=== PATIENT | male | born 1990 | race Two or more races ===

== ENCOUNTER → 2017-08-24 | Outpatient (REF) | payer BC ==
[2017-08-24 18:50] LABS: ESTIMATED AVERAGE GLUCOSE 117 MG/DL (60-110); HEMOGLOBIN A1c 5.7 %
[2017-08-24 18:57] LABS: TOTAL 25(OH) VITAMIN D 13.2 NG/ML (30.0-100.0)
[2017-08-24 18:59] LABS: ALBUMIN 3.7 GM/DL (3.2-5.2); ALBUMIN/GLOBULIN RATIO 0.95 (1.00-1.93); ALKALINE PHOSPHATASE 78 U/L (45-117); ALT/SGPT 40 U/L (12-78); ANION GAP 8 MEQ/L (8-16); AST/SGOT 29 U/L (7-37); BILIRUBIN,TOTAL 0.5 MG/DL (0.2-1.0); BLOOD UREA NITROGEN 18 MG/DL (7-18); CALCIUM LEVEL 8.8 MG/DL (8.5-10.1); CARBON DIOXIDE LEVEL 28 MEQ/L (21-32); CHLORIDE LEVEL 105 MEQ/L (98-107); CHOLESTEROL LEVEL 202 MG/DL (<200); CHOLESTEROL RISK RATIO 5.611 (<5); CREATININE FOR GFR 1.04 MG/DL (0.70-1.30); GLOMERULAR FILTRATION RATE > 60.0 (>60); GLUCOSE, FASTING 98 MG/DL (70-100); HDL CHOLESTEROL 36 MG/DL (>40); LDL CHOLESTEROL 152.8 MG/DL (<100); NON-HDL-C 166 MG/DL; POTASSIUM SERUM 4.5 MEQ/L (3.5-5.1); SODIUM LEVEL 141 MEQ/L (136-145); TOTAL PROTEIN 7.6 GM/DL (6.4-8.2); TRIGLYCERIDES LEVEL 66 MG/DL (<150)
== END ==
LOC: M LAB REF 16:46
DX: Z13.9 Encounter for screening, unspecified (principal)
CPT/HCPCS: 84443

== ENCOUNTER 2018-01-19 02:13 | Inpatient (IN) | payer MEDICAID, SELFPAY, OTHER ==
[2018-01-19] MEDS: LORazepam 2 MG TAB PO (02:41)
[2018-01-19 02:47] LABS: HEMATOCRIT 40.1 % (42.0-52.0); HEMOGLOBIN 13.5 g/dl (13.5-17.5); MEAN CORPUSCULAR HEMOGLOBIN 30.8 pg (27.0-33.0); MEAN CORPUSCULAR HGB CONC 33.7 g/dl (32.0-36.5); MEAN CORPUSCULAR VOLUME 91.3 fl (80.0-96.0); PLATELET COUNT, AUTOMATED 256 10^3/uL (150-450); RED BLOOD COUNT 4.39 10^6/uL (4.30-6.10); RED CELL DISTRIBUTION WIDTH 12.7 % (11.5-14.5); WHITE BLOOD COUNT 7.6 10^3/uL (4.0-10.0)
[2018-01-19 03:08] LABS: AMPHETAMINES LEVEL URINE NEGATIVE (NEGATIVE); BARBITURATES URINE NEGATIVE (NEGATIVE); BENZODIAZEPINES URINE NEGATIVE (NEGATIVE); CANNABINOIDS URINE NEGATIVE (NEGATIVE); COCAINE METABOLITE URINE NEGATIVE (NEGATIVE); METHADONE URINE NEGATIVE (NEGATIVE); OPIATES URINE NEGATIVE (NEGATIVE); PHENCYCLIDINE URINE NEGATIVE (NEGATIVE)
[2018-01-19 03:31] LABS: ACETAMINOPHEN LEVEL < 2.0 UG/ML (10.0-30.0); ALBUMIN 3.9 GM/DL (3.2-5.2); ALBUMIN/GLOBULIN RATIO 1.05 (1.00-1.93); ALKALINE PHOSPHATASE 100 U/L (45-117); ALT/SGPT 47 U/L (12-78); ANION GAP 7 MEQ/L (8-16); AST/SGOT 40 U/L (7-37); BILIRUBIN,DIRECT 0.2 MG/DL (0.0-0.2); BILIRUBIN,TOTAL 0.4 MG/DL (0.2-1.0); BLOOD UREA NITROGEN 14 MG/DL (7-18); CALCIUM LEVEL 8.9 MG/DL (8.5-10.1); CARBON DIOXIDE LEVEL 27 MEQ/L (21-32); CHLORIDE LEVEL 104 MEQ/L (98-107); CREATININE FOR GFR 1.01 MG/DL (0.70-1.30); ETHYL ALCOHOL (ETHANOL) < 0.003 % (0.000-0.010); GLOMERULAR FILTRATION RATE > 60.0 (>60); GLUCOSE, FASTING 88 MG/DL (70-100); POTASSIUM SERUM 3.6 MEQ/L (3.5-5.1); SALICYLATE LEVEL 3.6 MG/DL (5.0-30.0); SODIUM LEVEL 138 MEQ/L (136-145); TOTAL PROTEIN 7.6 GM/DL (6.4-8.2)
[2018-01-19] MEDS ORDERED: MAALOX 30 ML SUSP *UDC PO (04:00)
[2018-01-19] MEDS ORDERED: MOM 30ML SUSPENSION UDC PO (04:00)
[2018-01-19] MEDS: PALIPERIDONE 3 MG ER TAB (INVEGA) PO (09:00)
[2018-01-19] MEDS: diphenhydrAMINE INJ 50MG/ML VIAL (J1200) IM (18:58)
[2018-01-19] MEDS: HALOPERIDOL 5 MG/ML VIAL (J1630) IM (18:59)
[2018-01-19] MEDS: LORazepam 2 MG/ML VIAL (J2060) IV (19:00)
[2018-01-19] MEDS: LORazepam 2 MG/ML VIAL (J2060) IM (19:21)
[2018-01-20] MEDS: PALIPERIDONE 3 MG ER TAB (INVEGA) PO ×3 (00:57→22:01)
[2018-01-21] MEDS: EUCERIN 120GM CREAM TOP ×3 (00:44→22:45)
[2018-01-21] MEDS: PALIPERIDONE 3 MG ER TAB (INVEGA) PO ×2 (09:00→22:45)
[2018-01-22] MEDS: EUCERIN 120GM CREAM TOP ×2 (10:15→21:33)
[2018-01-22] MEDS: PALIPERIDONE 3 MG ER TAB (INVEGA) PO ×2 (10:15→21:33)
[2018-01-22] MEDS: ACETAMINOPHEN TAB 650MG DOSE (2X325MG) PO (17:01)
[2018-01-22] MEDS: traZODone 50 MG TAB PO (22:13)
[2018-01-23] MEDS: EUCERIN 120GM CREAM TOP ×2 (09:15→21:00)
[2018-01-23] MEDS: PALIPERIDONE 3 MG ER TAB (INVEGA) PO ×2 (09:15→21:04)
[2018-01-23] MEDS: traZODone 50 MG TAB PO (21:04)
[2018-01-24] MEDS: PALIPERIDONE 6 MG ER TAB (INVEGA) PO ×2 (09:54→21:42)
[2018-01-24] MEDS: EUCERIN 120GM CREAM TOP ×2 (09:54→21:00)
[2018-01-24] MEDS: traZODone 50 MG TAB PO (21:42)
[2018-01-25] MEDS: PALIPERIDONE 6 MG ER TAB (INVEGA) PO ×2 (08:39→20:51)
[2018-01-25] MEDS: EUCERIN 120GM CREAM TOP ×2 (08:41→20:50)
[2018-01-25] MEDS: PALIPERIDONE PALMITATE 234 MG/1.5 ML INJ (INVEGA SUSTENNA)(J2426) IM (13:24)
[2018-01-25] MEDS: traZODone 50 MG TAB PO (20:51)
[2018-01-26] MEDS: OLANZapine ORAL DISINTEGRATING TAB 5MG PO (01:15)
[2018-01-26] MEDS: PALIPERIDONE 6 MG ER TAB (INVEGA) PO ×2 (08:36→21:55)
[2018-01-26] MEDS: EUCERIN 120GM CREAM TOP ×2 (08:37→21:00)
[2018-01-27] MEDS: EUCERIN 120GM CREAM TOP ×2 (09:00→21:06)
[2018-01-27] MEDS: PALIPERIDONE 6 MG ER TAB (INVEGA) PO ×2 (09:08→21:03)
[2018-01-27] MEDS: ACETAMINOPHEN TAB 650MG DOSE (2X325MG) PO (18:34)
[2018-01-28] MEDS: EUCERIN 120GM CREAM TOP ×2 (09:00→21:00)
[2018-01-28] MEDS: PALIPERIDONE 6 MG ER TAB (INVEGA) PO (09:18)
[2018-01-28] MEDS: PALIPERIDONE PALMITATE 156 MG/1ML INJ(INVEGA SUSTENNA)(J2426) IM (11:19)
[2018-01-28] MEDS: LORazepam 2 MG TAB PO (21:02)
[2018-01-29] MEDS: EUCERIN 120GM CREAM TOP ×2 (09:08→21:00)
[2018-01-29] MEDS: LORazepam 2 MG TAB PO (16:59)
[2018-01-29] MEDS: OLANZapine ORAL DISINTEGRATING TAB 5MG PO (17:54)
[2018-01-30] MEDS: EUCERIN 120GM CREAM TOP ×2 (09:23→21:00)
[2018-01-31] MEDS: LORazepam 2 MG TAB PO (00:13)
[2018-01-31] MEDS: traZODone 50 MG TAB PO (00:13)
[2018-01-31] MEDS: EUCERIN 120GM CREAM TOP (08:39)
[2018-02-27] MEDS ORDERED: PALIPERIDONE PALMITATE 156 MG/1ML INJ(INVEGA SUSTENNA)(J2426) IM (09:00)
== END 2018-01-31 11:45 | disposition home or self-care (01) | DRG 750 ==
LOC: M ED 02:13 → M ED INP 03:50 → M PSY 04:34
DX: F20.0 Paranoid schizophrenia (principal); F17.210 Nicotine dependence, cigarettes, uncomplicated; Z91.018 Allergy to other foods

== ENCOUNTER 2018-03-13 23:02 | Emergency (ER) | payer MEDICAID, OTHER ==
[~2018-03-13 23:02] MED LIST: INVE234I IM; TRAZO50TA PO; VIST50CA PO
[2018-03-14 00:28] LABS: HEMATOCRIT 41.4 % (42.0-52.0); HEMOGLOBIN 13.9 g/dl (13.5-17.5); MEAN CORPUSCULAR HEMOGLOBIN 30.5 pg (27.0-33.0); MEAN CORPUSCULAR HGB CONC 33.6 g/dl (32.0-36.5); MEAN CORPUSCULAR VOLUME 90.8 fl (80.0-96.0); PLATELET COUNT, AUTOMATED 249 10^3/uL (150-450); RED BLOOD COUNT 4.56 10^6/uL (4.30-6.10)
[2018-03-14 00:29] LABS: ACETAMINOPHEN LEVEL < 2.0 UG/ML (10.0-30.0); ALBUMIN 3.8 GM/DL (3.2-5.2); ALT/SGPT 47 U/L (12-78); BILIRUBIN,DIRECT 0.1 MG/DL (0.0-0.2); BILIRUBIN,TOTAL 0.4 MG/DL (0.2-1.0); BLOOD UREA NITROGEN 12 MG/DL (7-18); CALCIUM LEVEL 8.9 MG/DL (8.5-10.1); CARBON DIOXIDE LEVEL 22 MEQ/L (21-32); CHLORIDE LEVEL 105 MEQ/L (98-107); CREATININE FOR GFR 1.04 MG/DL (0.70-1.30); ETHYL ALCOHOL (ETHANOL) 0.026 % (0.000-0.010); GLOMERULAR FILTRATION RATE > 60.0 (>60); GLUCOSE, FASTING 88 MG/DL (70-100); POTASSIUM SERUM 3.6 MEQ/L (3.5-5.1); SALICYLATE LEVEL 3.7 MG/DL (5.0-30.0); SODIUM LEVEL 138 MEQ/L (136-145); TOTAL PROTEIN 7.5 GM/DL (6.4-8.2)
[2018-03-14 01:00] LABS: AMPHETAMINES LEVEL URINE NEGATIVE (NEGATIVE); BARBITURATES URINE NEGATIVE (NEGATIVE); BENZODIAZEPINES URINE NEGATIVE (NEGATIVE); CANNABINOIDS URINE NEGATIVE (NEGATIVE); COCAINE METABOLITE URINE NEGATIVE (NEGATIVE); METHADONE URINE NEGATIVE (NEGATIVE); OPIATES URINE NEGATIVE (NEGATIVE); PHENCYCLIDINE URINE NEGATIVE (NEGATIVE)
[2018-03-14] MEDS ORDERED: LORazepam 0.5 MG TAB PO ONE (01:15)
[2018-03-14] MEDS ORDERED: PALIPERIDONE PALMITATE 156 MG/1ML INJ(INVEGA SUSTENNA)(J2426) IM ONE (02:30)
[2018-03-14 02:51] VITALS: BP 158/94
--- NOTE | 2018-03-14 14:46 | ECGEPIP ---
Stationary ECG Study [facility] - ED Test Date: 2018-03-14 Pat Name: JOSIAH ACEVEDO Department: Room: - Gender: M Director News: : 1990 Requested By: ROSEMARY Mclain Order Number: [id number] Reading MD: Nichole Rashid Measurements Intervals [place] Rate: 80 P: 38 MN: 136 QRS: 53 QRSD: 102 T: 76 QT: 383 QTc: 444 Interpretive Statements SINUS RHYTHM NONSPECIFIC ST & T-WAVE ABNORMALITY NO PRIRO FOR COMPARISON Electronically Signed On 03-14-2018 14:46:43 EST by Nichole Rashid
== END 2018-03-14 02:51 | disposition home or self-care (01) ==
LOC: M ED 23:02
DX: R44.0 Auditory hallucinations (principal); Z91.018 Allergy to other foods; Z79.899 Other long term (current) drug therapy; F17.210 Nicotine dependence, cigarettes, uncomplicated
CPT/HCPCS: 36415; 80048; 80076; 80307; 84443; 85027; 93005; 96372; 99284; G0480; J2426

== ENCOUNTER → 2018-06-23 | Outpatient (REF) | payer OTHER, MEDICAID ==
[2018-06-23 18:47] LABS: ALBUMIN 3.5 GM/DL (3.2-5.2); ALT/SGPT 33 U/L (12-78); BILIRUBIN,TOTAL 0.3 MG/DL (0.2-1.0); BLOOD UREA NITROGEN 12 MG/DL (7-18); CALCIUM LEVEL 8.4 MG/DL (8.5-10.1); CARBON DIOXIDE LEVEL 25 MEQ/L (21-32); CHLORIDE LEVEL 108 MEQ/L (98-107); CHOLESTEROL LEVEL 241 MG/DL (<200); CHOLESTEROL RISK RATIO 6.885 (<5); CREATININE FOR GFR 1.04 MG/DL (0.70-1.30); GLOMERULAR FILTRATION RATE > 60.0 (>60); GLUCOSE, FASTING 105 MG/DL (70-100); HDL CHOLESTEROL 35 MG/DL (>40); LDL CHOLESTEROL 175.4 MG/DL (<100); NON-HDL-C 206 MG/DL; SODIUM LEVEL 139 MEQ/L (136-145); TOTAL PROTEIN 7.1 GM/DL (6.4-8.2); TRIGLYCERIDES LEVEL 153 MG/DL (<150)
[2018-06-23 19:11] LABS: HEMOGLOBIN A1c 5.9 %
== END ==
LOC: M LAB REF 16:35
PROVIDERS: ATTEND Nurse Practitioner Adult Health
DX: Z13.9 Encounter for screening, unspecified (principal)

== ENCOUNTER 2018-06-30 16:32 | Inpatient (IN) | payer MEDICAID, OTHER ==
[~2018-06-30] VITALS: Ht 175.3 cm; Wt 152.5 kg
[2018-06-30] MEDS ORDERED: LORA-674 PO (16:51)
[2018-06-30] MEDS ORDERED: IPRATROPIUM 0.5MG/ALBUTEROL 2.5MG INH SOL UD 3ML (DUONEB)(J7620) NEB ONE (17:00)
[2018-06-30] MEDS ORDERED: methylPREDNISolone INJ 125 MG/2 ML VIAL (J2930) IV ONE (17:00)
[2018-06-30 17:10] LABS: BASO % 0.2 % (0.0-1.0); EOS # 0.1 10^3/uL (0.0-0.50); HEMATOCRIT 43.4 % (42.0-52.0); HEMOGLOBIN 14.7 g/dl (13.5-17.5); LYMPH # 2.6 10^3/uL (1.5-6.5); LYMPH % 31.6 % (24.0-44.0); MEAN CORPUSCULAR HEMOGLOBIN 29.9 pg (27.0-33.0); MEAN CORPUSCULAR HGB CONC 33.9 g/dl (32.0-36.5); MEAN CORPUSCULAR VOLUME 88.2 fl (80.0-96.0); MONO # 0.5 10^3/uL (0.0-0.8); MONO % 6.1 % (0.0-5.0); NEUTROPHILS % 60.7 % (36.0-66.0); PLATELET COUNT, AUTOMATED 199 10^3/uL (150-450); RED BLOOD COUNT 4.92 10^6/uL (4.30-6.10); WHITE BLOOD COUNT 8.2 10^3/uL (4.0-10.0)
[2018-06-30 17:26] LABS: INR 1.07
[2018-06-30 17:27] LABS: PARTIAL THROMBOPLASTIN TIME 30.8 SECONDS (25.4-37.6)
--- NOTE | 2018-06-30 17:29 | REP ---
CT Head without contrast HISTORY: Trauma COMPARISON: None There is no intraparenchymal hemorrhage, acute infarct, mass or midline shift. The ventricular system is normal in appearance. There is no extra cerebral collection. There is no fracture. The visualized sinuses are clear. IMPRESSION: There is no intracranial lesion. Electronically Signed by Terrell Oliver MD 06/30/2018 05:21 P
--- NOTE | 2018-06-30 17:32 | REP ---
CT cervical spine without contrast HISTORY: Trauma COMPARISON: None There is no acute fracture or subluxation. There is no disc bulge or herniation. The spinal canal and neural foramina are patent. The intervertebral discs and vertebral bodies are normal in height. There is loss of the normal lordotic curve. IMPRESSION: There is no acute fracture or subluxation. Electronically Signed by Terrell Oliver MD 06/30/2018 05:24 P
[2018-06-30 17:46] LABS: ALBUMIN 3.4 GM/DL (3.2-5.2); ALT/SGPT 87 U/L (12-78); BILIRUBIN,DIRECT 0.1 MG/DL (0.0-0.2); BILIRUBIN,TOTAL 0.4 MG/DL (0.2-1.0); BLOOD UREA NITROGEN 15 MG/DL (7-18); CALCIUM LEVEL 8.6 MG/DL (8.5-10.1); CARBON DIOXIDE LEVEL 25 MEQ/L (21-32); CHLORIDE LEVEL 108 MEQ/L (98-107); CPK CREATINE PHOSPHOKINASE 293 U/L (39-308); CREATININE FOR GFR 1.24 MG/DL (0.70-1.30); FREE T4 1.06 NG/DL (0.76-1.46); GLOMERULAR FILTRATION RATE > 60.0 (>60); GLUCOSE, FASTING 105 MG/DL (70-100); LIPASE 48 U/L (73-393); MB/CK RELATIVE INDEX 0.99 (< OR =4); NT-PRO BNP 415 PG/ML (<125); POTASSIUM SERUM 3.7 MEQ/L (3.5-5.1); SODIUM LEVEL 139 MEQ/L (136-145); TOTAL PROTEIN 7.8 GM/DL (6.4-8.2); TROPONIN I 0.09 NG/ML (< 0.10)
--- NOTE | 2018-06-30 17:53 | REP ---
HISTORY: Chest pain. COMPARISON: None. There is cardiomegaly. The lungs are clear and the pleural angles are sharp. The osseous structures are within normal limits. IMPRESSION: Cardiomegaly of uncertain etiology. Electronically Signed by Froy Mcgarry DO 06/30/2018 06:58 P
[2018-06-30] MEDS ORDERED: ISOVUE-370 76% 100ML VIAL (Q9967) As Ordered ONE (17:59)
[2018-06-30] MEDS ORDERED: HEPARIN SOD (PORCINE) 5000 UNITS/ML VIAL IV ONE (18:45)
[2018-06-30] MEDS ORDERED: HEPARIN DRIP 25,000 UNITS in APPROPRIATE DILUENT 1 EA IV SCH (18:45)
--- NOTE | 2018-06-30 19:01 | REPVR ---
EXAM: CT Angiography Chest With Contrast EXAM DATE/TIME: 06/30/2018 6:17 PM CLINICAL HISTORY: 28 years old, male; Signs and symptoms; Shortness of breath; Additional info: Chest pain, SOB TECHNIQUE: Imaging protocol: Axial computed tomographic angiography images of the chest with intravenous contrast using CT angiography protocol. Coronal and sagittal reformatted images were created and reviewed. 3D rendering: MIP reconstructed images were created and reviewed. Radiation optimization: All CT scans at this facility use at least one of these dose optimization techniques: automated exposure control; mA and/or kV adjustment per patient size (includes targeted exams where dose is matched to clinical indication); or iterative reconstruction. Contrast material: ISOVUE 370; Contrast volume: 75 ml; Contrast route: IV; COMPARISON: CR Chest, 2 view PA, Lat 06/30/2018 5:13 PM FINDINGS: Pulmonary arteries: There i large pulmonary embolus in the descending left pulmonary artery and extending into the infrahilar pulmonary arterial branches. There is a very large saddle embolus in the right main pulmonary artery. There is a linear collection of thrombus crossing the midline to the left. There is a complete filling defect of all of the right inferior pulmonary artery and branches to the right lower lobe. There is a prominent pulmonary embolus in the pulmonary artery to the right upper lobe as well. Aorta: There is opacification of the aortic arch. Lungs: There is a 2 cm area of consolidated lung at the right posterior gutter region which may be atelectasis or a combination of atelectasis and infiltrate. It would be important to have followup studies to see if this resolves and to exclude any possibility of underlying nodule. Pleural space: Normal. No pneumothorax. No pleural effusion. Heart: There is mild cardiomegaly. Mediastinum: Residual thymus in the anterior mediastinum Lymph nodes: Unremarkable. No enlarged lymph nodes. Bones/joints: There is no evidence of bony abnormality. Soft tissues: Unremarkable. IMPRESSION: 1. This study is highly positive for pulmonary embolus with a large saddle embolus in the right main pulmonary artery. 2. The right pulmonary embolus fills the right inferior pulmonary artery and branches to the right lower lobe. There is also embolus to the right upper lobe pulmonary artery. 3. Large pulmonary embolus within the left inferior pulmonary artery to the infrahilar branches.Findings were discussed with LARY LOCKE at 06/30/2018 6:40 PM EDT. Electronically signed by: Hugh Padilla On 06/30/2018 19:01:34 PM
[2018-06-30] MEDS ORDERED: INVE234I IM (19:13)
[2018-06-30] MEDS ORDERED: HYDR50TA70 PO (19:13)
[2018-06-30] MEDS ORDERED: TRAZO50TA PO (19:13)
[2018-06-30] MEDS ORDERED: ENOXAPARIN 150 MG/ML SYR (J1650) SC ONE (19:30)
[2018-06-30] MEDS ORDERED: ACETAMINOPHEN TAB 650MG DOSE (2X325MG) PO PRN (20:45)
[2018-06-30] MEDS ORDERED: MAALOX 30 ML SUSP *UDC PO PRN (20:45)
[2018-06-30] MEDS ORDERED: MOM 30ML SUSPENSION UDC PO PRN (20:45)
[2018-06-30 21:00] VITALS: BP 140/88
[2018-06-30 22:00] VITALS: BP 137/90
--- NOTE | 2018-06-30 22:12 | HPEPDOC ---
General Date of Admission June 30, 2018 at 19:44 Chief Complaint The patient is a 28-year-old male admitted with a reason for visit of Pulmonary Embolism. Source: Patient Exam Limitations: No limitations History of Present Illness Mr. Marrero is a 28 years old man with no prior medical hx except for Bipolar disorder, for which he doesn't take any medications. Pt presented to ER today after two episodes of syncope, associated with SOB and chest pain. Pt is not sure about exactly when and how his respiratory symptoms started, but thinks onset may be around early May. At the end of April, he travelled to [place] by [employer], which was about 7 hours-long trip. Pt has no personal or family hx of blood clot or bleeding disorder. In the ER, pt was hypoxic, and required 4L of O2 by NC to maintain O2 sat 92- 95%. He had mild tachycardia, HR in low 100. BP stable. Pro-BNP 415. Troponin normal. CTA showed saddle PE on right main PA. REPORT: 1. This study is highly positive for pulmonary embolus with a large saddle embolus in the right main pulmonary artery. 2. The right pulmonary embolus fills the right inferior pulmonary artery and branches to the right lower lobe. There is also embolus to the right upper lobe pulmonary artery. 3. Large pulmonary embolus within the left inferior pulmonary artery to the infrahilar branches Home Medications Scheduled Loratadine (Loratadine) 10 Mg Tablet, 10 MG PO QHS, (Reported) Paliperidone Palmitate (Invega Sustenna) 234 Mg/1.5 Ml Syringe, 234 MG IM QMONTH, (Reported) Scheduled PRN Hydroxyzine HCl (Hydroxyzine HCl) 50 Mg Tablet, 50 MG PO BID PRN for ANXIETY, (Reported) Trazodone HCl (Trazodone HCl) 50 Mg Tablet, 50 MG PO QHS PRN for INSOMNIA, (Reported) Allergies Coded Allergies: benzocaine (Verified Adverse Reaction, Mild, nausea and vomiting, 06/30/18) mckenzie flavor (Verified Adverse Reaction, Mild, nausea, 06/30/18) Past Medical History Medical History Bipolar disorder Surgical History None Family History Significant Family History: No pertinent family hx Social History * Smoker: current smoker Alcohol: Denies Drugs: denies Psychosocial History: Bipolar A-FIB/CHADSVASC A-FIB History Current/History of A-Fib/PAF?: No Review of Systems Constitutional: Denies: Chills, Fever, Malaise, Night Sweats, Weakness, Fatig ue, Weight Loss, Lethargy, Other Eyes: Denies: Pain, Vision change, Conjunctivae inflammation, Eyelid inflammation, Redness, Other ENT: Denies: Head Aches, Ear Pain, Dysphagia, Sinus Congestion, Post Nasal Drip, Sore Throat, Epistaxis, Other Symptoms Skin: Denies: Rash, Lesions, Jaundice, Bruising, Itching, Dry, Breakdown, Nail Changes, Other Pulmonary: Reports: Dyspnea, Pleuritic Chest Pain Cardiovascular: Reports: Chest Pain; Denies: Edema Gastrointestinal: Denies: Nausea, Vomiting, Abdominal Pain, Diarrhea, Constipation, Melena, Hematochezia, Other Symptoms Genitourinary: Denies: Dysuria, Frequency, Incontinence, Hematuria, Retention, Other Symptoms Hematologic: Denies: Bruising, Bleeding Excessively, Petecchia, Purpura, Enlarged Lymph Nodes, Other Hematologic Endocrine: Denies: Polydipsia, Polyphagia, Polyuria, Heat Intolerance, Cold Intolerance, Other Endocrine Sx Musculoskeletal: Denies: Neck Pain, Back Pain, Shoulder Pain, Arm Pain, Hand Pain, Leg Pain, Foot Pain, Joint Pain, Muscle Pain, Spasms, Other Symptoms Neurological: Denies: Weakness, Numbness, Incoordination, Change in speech, Confusion, Seizures, Other Symptoms Psych: Denies: Mood Normal, Anxiety, Depression, Memory Issues, Thoughts of Self Harm, Anger, Thoughts of Harming Other, Other Psych Physical Examination General Exam: Positive: Alert, Cooperative, No Acute Distress Eye Exam: Positive: PERRLA ENT Exam: Positive: Atraumatic Neck Exam: Positive: Supple; Negative: JVD Chest Exam: Positive: Clear to auscultation, Normal air movement Heart Exam: Positive: Rate Normal, Regular Rhythm Telemetry: Positive: No significant arrhythmia Abdomen Exam: Positive: Normal bowel sounds Extremity Exam: Positive: Normal pulses; Negative: Edema, Tenderness, Swelling Skin Exam: Negative: Rash, Breakdown, Lesion Neuro Exam: Positive: Normal Speech, Strength at 5/5 X4 ext Psych Exam: Positive: Mental status NL, Mood NL Vital Signs Vital Signs Date Time Temp Pulse Resp B/P (MAP) Pulse Ox O2 Delivery O2 Flow Rate FiO2 06/30/18 21:06 105 20 93 Nasal Cannula 4.0 06/30/18 21:00 140/88 (105) 06/30/18 21:00 97.3 Laboratory Data Labs 24H Laboratory Tests 2 06/30/18 16:57: Immature Granulocyte % (Auto) 0.4, White Blood Count 8.2, Red Blood Count 4.92, Hemoglobin 14.7, Hematocrit 43.4, Mean Corpuscular Volume 88.2, Mean Corpuscular Hemoglobin 29.9, Mean Corpuscular Hemoglobin Concent 33.9, Red Cell Distribution Width 12.8, Platelet Count 199, Neutrophils (%) (Auto) 60.7, Lymphocytes (%) (Auto) 31.6, Monocytes (%) (Auto) 6.1H, Eosinophils (%) (Auto) 1.0, Basophils (%) (Auto) 0.2, Neutrophils # (Auto) 5.0, Lymphocytes # (Auto) 2.6, Monocytes # (Auto) 0.5, Eosinophils # (Auto) 0.1, Basophils # (Auto) 0.0, Nucleated Red Blood Cells % (auto) 0.0, Prothrombin Time 14.0, Prothromb Time International Ratio 1.07, Activated Partial Thromboplast Time 30.8, Anion Gap 6L, Glomerular Filtration Rate > 60.0, Calcium Level 8.6, Aspartate Amino Transf (AST/SGOT) 71H, Alanine Aminotransferase (ALT/SGPT) 87H, Alkaline Phosphatase 105, Total Bilirubin 0.4, Direct Bilirubin 0.1, Total Creatine Kinase 293, Creatine Kinase MB 3.0, Creatine Kinase MB Relative Index 0.99, Troponin I 0.09, SK-Ctt-H-Type Natriuretic Peptide 415H, Total Protein 7.8, Albumin 3.4, Albumin/Globulin Ratio 0.77L, Lipase 48L, Thyroid Stimulating Hormone (TSH) 1.570, Free Thyroxine 1.06 CBC/BMP Laboratory Tests 06/30/18 16:57 Red Blood Count 4.92, Mean Corpuscular Volume 88.2, Mean Corpuscular Hemoglobin 29.9, Mean Corpuscular Hemoglobin Concent 33.9, Red Cell Distribution Width 12.8, Neutrophils (%) (Auto) 60.7, Lymphocytes (%) (Auto) 31.6, Monocytes (%) (A uto) 6.1 H, Eosinophils (%) (Auto) 1.0, Basophils (%) (Auto) 0.2, Neutrophils # (Auto) 5.0, Lymphocytes # (Auto) 2.6, Monocytes # (Auto) 0.5, Eosinophils # (Auto) 0.1, Basophils # (Auto) 0.0 Assessment/Plan 28 years old man with recent travel hx presenting with saddle PE and hypoxia. Hemodynamically stable. Saddle PE with Acute Hypoxic Respiratory Failure, without Hypotension or Heart Failure - Discussed with Staff Assistant Dr. Valverde; no indication for thrombolysis at this time - Admit to ICU for close hemodynamic monitoring - Initiate thrombolytic tx if hemodynamic instability or significant worsening clinical status - Lovenox therapeutic dose - Bleeding precaution - O2 by NC as needed - Echo and LE US tomorrow AM - Chek Factor V Leiden Plan / VTE VTE Prophylaxis Ordered?: No VTE Exclusion Mechanical Proph: Other (Pt on therapeutic Lovenox) VTE Exclusion Pharmacological: Other (Pt on therapeutic Lovenox) Plan Anticipated Discharge: Home SARAH FAM MD June 30, 2018 22:12
[2018-06-30] MEDS: DOCUSATE SODIUM 100 MG CAP PO SCH (22:19)
--- NOTE | 2018-06-30 22:25 | ECGEPIP ---
Stationary ECG Study [facility] - ED Test Date: 2018-06-30 Pat Name: JEFF ACEVEDO Department: Room: - Gender: M Extrusion Process Operator: TC : 1990 Requested By: LARY Hernandez Order Number: [id number] Reading MD: Nichole Rashid Measurements Intervals [place] Rate: 108 P: 61 WV: 166 QRS: 59 QRSD: 103 T: -42 QT: 338 QTc: 454 Interpretive Statements SINUS TACHYCARDIA ST DEVIATION AND MODERATE T-WAVE ABNORMALITY, CONSIDER ISCHEMIA, COMPARED 03/14/18 BASELINE ARTIFACT LIMITS INTERPRETATION Electronically Signed On 06-30-2018 22:25:27 EDT by Nichole Rashid
[2018-06-30] MEDS ORDERED: traZODone 50 MG TAB PO PRN (22:45)
[2018-06-30 23:00] VITALS: BP 145/87
[2018-06-30] MEDS ORDERED: INFLUENZA QUADRIVALENT PF VACCINE 0.5ML SYRINGE (90686) IM PRN (23:15)
[2018-07-01] VITALS (16 sets, daily range): BP systolic 99–147; BP diastolic 62–107; PULSE 98
[2018-07-01] MEDS ORDERED: PERCOCET 5MG/325MG TAB PO PRN (02:00)
[2018-07-01] MEDS ORDERED: NS 1,000 ML IV SCH (02:00)
[2018-07-01 03:55] LABS: HEMATOCRIT 44.6 % (42.0-52.0); HEMOGLOBIN 15.3 g/dl (13.5-17.5); MEAN CORPUSCULAR HGB CONC 34.3 g/dl (32.0-36.5); MEAN CORPUSCULAR VOLUME 87.5 fl (80.0-96.0); PLATELET COUNT, AUTOMATED 219 10^3/uL (150-450); WHITE BLOOD COUNT 9.4 10^3/uL (4.0-10.0)
[2018-07-01 04:20] LABS: BLOOD UREA NITROGEN 12 MG/DL (7-18); CALCIUM LEVEL 8.9 MG/DL (8.5-10.1); CARBON DIOXIDE LEVEL 21 MEQ/L (21-32); CHLORIDE LEVEL 107 MEQ/L (98-107); CREATININE FOR GFR 1.12 MG/DL (0.70-1.30); GLOMERULAR FILTRATION RATE > 60.0 (>60); GLUCOSE, FASTING 126 MG/DL (70-100); POTASSIUM SERUM 4.5 MEQ/L (3.5-5.1); SODIUM LEVEL 136 MEQ/L (136-145); TROPONIN I 0.44 NG/ML (< 0.10)
[2018-07-01] MEDS ORDERED: ALTEPLASE 2 MG/2 ML VIAL (J2997 PER 1MG) As Ordered ONE (08:17)
[2018-07-01] MEDS ORDERED: BUPIVACAINE HCL 0.5% 10 ML VIAL As Ordered ONE (08:25)
[2018-07-01] MEDS ORDERED: HEPARIN 25,000 UNITS/250 ML D5W BAG (100 UNITS/ML) As Ordered ONE (08:26)
[2018-07-01] MEDS ORDERED: HEPARIN 1,000 UNITS/ML 10ML VIAL (FOR RADIOLOGY& DIALYSIS ONLY) As Ordered ONE (08:26)
[2018-07-01] MEDS ORDERED: LIDOCAINE 2% MDV 20 ML VIAL As Ordered ONE (08:26)
[2018-07-01] MEDS ORDERED: ALTEPLASE RECOMBINANT 10 MG in APPROPRIATE DILUENT 1 EA IV ONE (08:30)
[2018-07-01] MEDS ORDERED: ISOVUE-300 61% 100ML VIAL (Q9967) As Ordered ONE (08:30)
[2018-07-01] MEDS ORDERED: ENOXAPARIN 150 MG/ML SYR (J1650) SC SCH (09:00)
--- NOTE | 2018-07-01 09:12 | CR.PDOC ---
General Date of Consultation: July 01, 2018 Consultation CONSULTATION REPORT FOR: Dr Hermosillo REASON FOR CONSULTATION: PE Vascular surgery Dr. Barr HPI: 28 year old M presented to ER 06/30/18 after two episodes of syncope, associated with SOB and chest pain. Apparently patient recently traveled from [place] to the [facility] by [employer], which was about 7 hours-long trip. Pt has no personal or family hx of blood clot or bleeding disorder. In the ER, pt was hypoxic, and required 4L of O2 by NC to maintain O2 sat 92- 95%. He had mild tachycardia, HR in low 100. BP stable. Pro-BNP 415. Troponin noted to be 0.58 with recheck 0.44. CTA showed saddle PE on right main PA. Currently the patient states he is still feeling short of breath, palpitations yesterday. He reports no episodes of dizziness or lightheadedness currently. The patient was noted to have blood pressure is 99-109 systolic despite IV fluids at 100 cc per hour. Vascular surgery was consulted for any further recommendations, possibly consider thrombolysis. Denies chest pain currently. Denies any prior history of bleeding, hematuria, GI bleeding, epistaxis. Denies prior history of head trauma,stroke. The patient states he has never been on anticoagulants. Platelet count is noted to be 219. Denies any fevers, chills, weakness, fatigue, Headache, Chest Pain, Shortness of breath, cough, palpitations, abdominal pain, N/V/D or changes in bowel or bladder habits. PMHx: Bipolar disorder M Obesity. BMI 47.2. PSHX: Denies SOCHX: Resides in: [facility] Marital Status: Single Tobacco use: Smoker ETOH: Denies Illicit Drugs: Denies FAMHX: Unremarkable, Patient denies any family history of clotting disorder, PE, DVT. ROS: As noted in HPI, otherwise 11pt ROS of systems reviewed and unremarkable. PE: GEN: 28 yo M, appears stated age. Currently comfortable resting in bed. Alert and oriented x 3. HEENT: Normocephalic, atraumatic. Sclera are nonicteric. Conjunctiva without injection. Nose midline. No facial asymmetry. Moist mucous membranes. Dentition fair. CHEST: Regular rate and rhythm, +S1, +S2 LUNGS: Clear to auscultation bilaterally. Few wheezes left base, no rales, or rhonchi appreciated. Breathing is currently comfortable. No accessory muscle use. ABD: Round, soft, non-tender, non-distended. +Bowel sounds throughout. No rebound or guarding. No costovertebral angle tenderness. EXT: Pulses 2+ bilaterally dorsalis pedis and radial. No lower extremity edema appreciated. SKIN: [place], dry, warm. Capillary refill <2sec. No rashes. NEURO: Alert and oriented x 3. Cranial nerves III-XII are intact. No focal deficits appreciated. CTA chest 1. This study is highly positive for pulmonary embolus with a large saddle embolus in the right main pulmonary artery. 2. The right pulmonary embolus fills the right inferior pulmonary artery and branches to the right lower lobe. There is also embolus to the right upper lobe pulmonary artery. 3. Large pulmonary embolus within the left inferior pulmonary artery to the infrahilar branches.Findings were discussed with LARY LOCKE at 06/30/2018 6:40 PM EDT. Electronically signed by: Hugh Padilla On 06/30/2018 19:01:34 PM A&P: 28 year old M presented to ER 06/30/18 after two episodes of syncope, associated with SOB and chest pain. Apparently patient recently traveled from [place] to the [facility] by [employer], which was about 7 hours-long trip. Pt has no personal or family hx of blood clot or bleeding disorder. In the ER, pt was hypoxic, and required 4L of O2 by NC to maintain O2 sat 92- 95%. He had mild tachycardia, HR in low 100. BP stable. Pro-BNP 415. Troponin noted to be 0.58 with recheck 0.44. CTA showed saddle PE on right main PA. Currently the patient states he is still feeling short of breath, palpitations yesterday. He reports no episodes of dizziness or lightheadedness currently. The patient was noted to have blood pressure is 99-109 systolic despite IV fluids at 100 cc per hour. Vascular surgery was consulted for any further recommendations, possibly consider thrombolysis. 1. Pulmonary embolism. Possibly provoked by recent bus trip and morbid obesity. The pt states he is still feeling SOB at rest. Vital signs this morning noted, blood pressure 109/66, heart rate 91, respiratory rate 20, oxygen saturation 93% 4 L nasal cannula. TTE pending. Troponin 0.44. Lovenox 140 mg subcutaneous every 12, this is placed on hold currently. The patient is reviewed and discussed with Dr. Barr, plan is for IR for possible pulmonary thrombolysis. This is reviewed with the patient who agrees to proceed. Plan is related to the attending physician, Dr Hermosillo. 2. Bipolar disorder. Management as per primary team. 3. morbid obesity. Complicates care. Thank you for your consultation. We will continue to follow along with you. Vital Signs/I&O Vital Signs Date Time Temp Pulse Resp B/P (MAP) Pulse Ox O2 Delivery O2 Flow Rate FiO2 07/01/18 08:00 4.0 07/01/18 08:00 91 93 07/01/18 08:00 20 07/01/18 07:00 109/66 (80) 07/01/18 04:00 98.8 06/30/18 21:06 Nasal Cannula I&O- Last 24 Hours up to 6 AM 07/01/18 06:00 Intake Total 1505 ml Output Total 2150 ml Balance -645 ml Laboratory Data Labs 24H Laboratory Tests 2 06/30/18 16:57: Immature Granulocyte % (Auto) 0.4, White Blood Count 8.2, Red Blood Count 4.92, Hemoglobin 14.7, Hematocrit 43.4, Mean Corpuscular Volume 88.2, Mean Corpuscular Hemoglobin 29.9, Mean Corpuscular Hemoglobin Concent 33.9, Red Cell Distribution Width 12.8, Platelet Count 199, Neutrophils (%) (Auto) 60.7, Lymphocytes (%) (Auto) 31.6, Monocytes (%) (Auto) 6.1H, Eosinophils (%) (Auto) 1.0, Basophils (%) (Auto) 0.2, Neutrophils # (Auto) 5.0, Lymphocytes # (Auto) 2.6, Monocytes # (Auto) 0.5, Eosinophils # (Auto) 0.1, Basophils # (Auto) 0.0, Nucleated Red Blood Cells % (auto) 0.0, Prothrombin Time 14.0, Prothromb Time International Ratio 1.07, Activated Partial Thromboplast Time 30.8, Anion Gap 6L, Glomerular Filtration Rate > 60.0, Calcium Level 8.6, Aspartate Amino Transf (AST/SGOT) 71H, Alanine Aminotransferase (ALT/SGPT) 87H, Alkaline Phosphatase 105, Total Bilirubin 0.4, Direct Bilirubin 0.1, Total Creatine Kinase 293, Creatine Kinase MB 3.0, Creatine Kinase MB Relative Index 0.99, Troponin I 0.09, DA-Fli-Z-Type Natriuretic Peptide 415H, Total Protein 7.8, Albumin 3.4, Albumin/Globulin Ratio 0.77L, Lipase 48L, Thyroid Stimulating Hormone (TSH) 1.570, Free Thyroxine 1.06 06/30/18 22:05: Troponin I 0.58#H 07/01/18 03:45: Nucleated Red Blood Cells % (auto) 0.0, Anion Gap 8, Glomerular Filtration Rate > 60.0, Calcium Level 8.9, Troponin I 0.44#H, Blood Urea Nitrogen 12, Creatinine 1.12, Sodium Level 136, Potassium Level 4.5#, Chloride Level 107, Carbon Dioxide Level 21 CBC/BMP Laboratory Tests 06/30/18 16:57 Red Blood Count 4.92, Mean Corpuscular Volume 88.2, Mean Corpuscular Hemoglobin 29.9, Mean Corpuscular Hemoglobin Concent 33.9, Red Cell Distribution Width 12.8, Neutrophils (%) (Auto) 60.7, Lymphocytes (%) (Auto) 31.6, Monocytes (%) (Auto) 6.1 H, Eosinophils (%) (Auto) 1.0, Basophils (%) (Auto) 0.2, Neutrophils # (Auto) 5.0, Lymphocytes # (Auto) 2.6, Monocytes # (Auto) 0.5, Eosinophils # (Auto) 0.1, Basophils # (Auto) 0.0 07/01/18 03:45 Red Blood Count 5.10, Mean Corpuscular Volume 87.5, Mean Corpuscular Hemoglobin 30.0, Mean Corpuscular Hemoglobin Concent 34.3, Red Cell Distribution Width 12.9, Calcium Level 8.9 Allergies Coded Allergies: benzocaine (Verified Adverse Reaction, Mild, nausea and vomiting, 06/30/18) mckenzie flavor (Verified Adverse Reaction, Mild, nausea, 06/30/18) Home Medications Scheduled Loratadine (Loratadine) 10 Mg Tablet, 10 MG PO QHS, (Reported) Paliperidone Palmitate (Invega Sustenna) 234 Mg/1.5 Ml Syringe, 234 MG IM QMONTH, (Reported) Scheduled PRN Hydroxyzine HCl (Hydroxyzine HCl) 50 Mg Tablet, 50 MG PO BID PRN for ANXIETY, (Reported) Trazodone HCl (Trazodone HCl) 50 Mg Tablet, 50 MG PO QHS PRN for INSOMNIA, (Reported) Annie Robert July 01, 2018 09:12
--- NOTE | 2018-07-01 11:51 | IPNPDOC ---
Date Seen The patient was seen on 07/01/18. Progress Note SUBJECTIVE: Patient was seen and examined this morning. He currently states that he still has shortness of breath. He states that he does not feel as if he can walk without passing out. He does admit to some left and right sided chest pain. He denies any cough, fever, chills, nausea, or vomiting. He denies any dizziness or lightheadedness OBJECTIVE PHYSICAL EXAMINATION: VITAL SIGNS: Please see below. GENERAL: Patient is awake alert and oriented. He is not in acute distress. He appears comfortable HEENT: Atraumatic normorcephalic. Eyes are nonicteric. Trachea is midline. Nasal cannula is in place. Mucous membranes are pink and moist CARDIOVASCULAR: Normal S1, S2. Slightly distant heart sounds. Tachycardic. Regular rhythm. No clicks, rubs, or murmurs auscultated RESPIRATORY: Clear vesicular lung sounds bilaterally. Good respiratory effort. No wheezes, rhonci, or rales. Currently on 4L nasal cannula ABDOMINAL: Obese, soft, nontender to palpation of all 4 quadrants. No rebound tenderness or guarding. Positive bowel sounds EXTREMITIES: No edema, swelling, or erythem in the bilateral lower extremities. Pulses are full and equal in the upper and lower extremities bilaterally NEUROLOGICAL: No focal neurological deficit noted PSYCHOLOGICAL: Mood appears normal. Flat affect LABORATORY DATA, IMAGING STUDIES, MICROBIOLOGY: Please see below. ASSESSMENT AND PLAN: Patient is a 28 year old male with a history of bipolar disorder who presented to the [facility] ER with a complaint of two episodes of syncope associated with shortness of breath and chest pain. On admission the patient sta sylvia that he believes his symptoms were going on since the beginning of May. He stated that in the end of April he had travelled from [place] by [employer] bus to [place] which is approximately 7 hours. Patient denied any family history of blood clots or bleeding disorders. Patient stated that he had two episodes of syncope. The patient stated he was walking and developed shortness of breath and fell over. He was able to recover and walked again resulting in a second episode of syncope. PROBLEMS: 1. Saddle Pulmonary Embolism -Patient had imaging in the ER demonstrating a large saddle embolus in the right main pulmonary artery. The right pulmonary embolus fills the right inferior pulmonary artery and branches to the right lower lobe. There is also embolus to the right upper lobe pulmonary artery. Additionally, large pulmonary embolus within the left inferior pulmonary artery to the infrahilar branches -Patient at time of presentation was hemodynamically stable and was not given systemic thrombolytic therapy. The case was discussed with the Pulmonary/ICU production utility worker physician -The patient has been receiving IV fluids and appears to have blood pressures that are trending down. The patient also has elevated troponin. He continues to require supplemental oxygen. Additionally, the patient has a history of two episodes of likely exertional syncope. It is felt that the patient would benefit from thrombolytic therapy. The case was discussed with Vascular Surgery who agreed with catheter directed thrombolysis -Patient will have PICC line insertion -Altepase 2. Bipolar Depression -Trazodone -Patient receives Invega injections as an outpatient 3. Nicotine Dependence -Nicotine Patch 14mg A-FIB/CHADSVASC A-FIB History Current/History of A-Fib/PAF?: No VS, I&O, 24H, Fishbone Vital Signs/I&O Vital Signs Date Time Temp Pulse Resp B/P (MAP) Pulse Ox O2 Delivery O2 Flow Rate FiO2 07/01/18 10:15 75 94 07/01/18 10:00 20 134/92 (106) 4.0 07/01/18 04:00 98.8 06/30/18 21:06 Nasal Cannula I&O- Last 24 Hours up to 6 AM 07/01/18 06:00 Intake Total 1505 ml Output Total 2150 ml Balance -645 ml Laboratory Data 24H LABS Laboratory Tests 2 06/30/18 16:57: Immature Granulocyte % (Auto) 0.4, White Blood Count 8.2, Red Blood Count 4.92, Hemoglobin 14.7, Hematocrit 43.4, Mean Corpuscular Volume 88.2, Mean Corpuscular Hemoglobin 29.9, Mean Corpuscular Hemoglobin Concent 33.9, Red Cell Distribution Width 12.8, Platelet Count 199, Neutrophils (%) (Auto) 60.7, Lymphocytes (%) (Auto) 31.6, Monocytes (%) (Auto) 6.1H, Eosinophils (%) (Auto) 1.0, Basophils (%) (Auto) 0.2, Neutrophils # (Auto) 5.0, Lymphocytes # (Auto) 2.6, Monocytes # (Auto) 0.5, Eosinophils # (Auto) 0.1, Basophils # (Auto) 0.0, Nucleated Red Blood Cells % (auto) 0.0, Prothrombin Time 14.0, Prothromb Time International Ratio 1.07, Activated Partial Thromboplast Time 30.8, Anion Gap 6L, Glomerular Filtration Rate > 60.0, Calcium Level 8.6, Aspartate Amino Transf (AST/SGOT) 71H, Alanine Aminotransferase (ALT/SGPT) 87H, Alkaline Phosphatase 105, Total Bilirubin 0.4, Direct Bilirubin 0.1, Total Creatine Kinase 293, Creatine Kinase MB 3.0, Creatine Kinase MB Relative Index 0.99, Troponin I 0.09, JZ-Anz-G-Type Natriuretic Peptide 415H, Total Protein 7.8, Albumin 3.4, Albumin/Globulin Ratio 0.77L, Lipase 48L, Thyroid Stimulating Hormone (TSH) 1.570, Free Thyroxine 1.06 06/30/18 22:05: Troponin I 0.58#H 07/01/18 03:45: Nucleated Red Blood Cells % (auto) 0.0, Anion Gap 8, Glomerular Filtration Rate > 60.0, Calcium Level 8.9, Troponin I 0.44#H, Blood Urea Nitrogen 12, Creatinine 1.12, Sodium Level 136, Potassium Level 4.5#, Chloride Level 107, Carbon Dioxide Level 21 CBC/BMP Laboratory Tests 06/30/18 16:57 Red Blood Count 4.92, Mean Corpuscular Volume 88.2, Mean Corpuscular Hemoglobin 29.9, Mean Corpuscular Hemoglobin Concent 33.9, Red Cell Distribution Width 12.8, Neutrophils (%) (Auto) 60.7, Lymphocytes (%) (Auto) 31.6, Monocytes (%) (Auto) 6.1 H, Eosinophils (%) (Auto) 1.0, Basophils (%) (Auto) 0.2, Neutrophils # (Auto) 5.0, Lymphocytes # (Auto) 2.6, Monocytes # (Auto) 0.5, Eosinophils # (Auto) 0.1, Basophils # (Auto) 0.0 07/01/18 03:45 Red Blood Count 5.10, Mean Corpuscular Volume 87.5, Mean Corpuscular Hemoglobin 30.0, Mean Corpuscular Hemoglobin Concent 34.3, Red Cell Distribution Width 12.9, Calcium Level 8.9 GME ATTESTATION GME ATTESTATION My faculty preceptor for this patient encounter was physically present during the encounter and was fully available. All aspects of the patient interview, examination, medical decision making process, and medical care plan development were reviewed and approved by the faculty preceptor. The faculty preceptor is aware and concurs with the plan as stated in the body of this note and will attest to such by his/her cosignature. ATTENDING NOTE I saw and evaluated the patient. I agree with the findings and plan of care as documented in the resident's note ROSEMARY HATHAWAY DO July 01, 2018 11:50 DANIEL DA SILVA MD July 03, 2018 16:38
--- NOTE | 2018-07-01 13:15 | CR ---
DATE OF CONSULTATION: 07/01/2018 HISTORY OF PRESENT ILLNESS: Mr. Marrero is a 28-year-old male with a past medical history of bipolar disorder, not on medications who presented initially with two episodes of syncope associated with some shortness of breath and mid sternal chest pain. The patient reports that he has been noticing shortness of breath for the past few weeks as well as occasional episodes of leg pain. He did not report any history of leg swelling. He reports this occurred after he had traveled to [place] in April. Since his travel to [place], which was approximately a 7-hour bus ride one way, he had noticed shortness of breath with exertion and intermittent mid sternal chest pains as well as the leg pains. The patient attributed it just to usual shortness of breath with exertion, although he did note that this was new and worsening symptoms for him. On the day of admission, he had noticed increased shortness of breath and had a syncopal episode times two. The patient had denied any significant coughing. No hemoptysis. No fevers or chills. He does report some abdominal pain in the right lower quadrant currently, but denies any nausea or vomiting. The patient denies a family history of blood clots or bleeding disorder. The patient also reports a prior history of obstructive sleep apnea, was tested in 2008 and diagnosed with obstructive sleep apnea at that time. He did have a continuous positive airway pressure (CPAP) machine but then it was taken and he is unclear why he did not continue to have CPAP. The sleep studies were done in [place] and since coming to [place] he has not been on any CPAP. The patient does report a history of snoring at night and witnessed apneas. He does also have daytime sleepiness and fatigue and frequent nighttime awakening. In the emergency department (ED), the patient was hypoxemic and initially was started on 4 liters on nasal cannula oxygen with oxygen saturations 92-95%. He was also mildly tachycardic with a stable blood pressure. He was given normal saline for intravenous (IV) fluid hydration with some improvement in his heart rate. This morning, the patient continued to report some dizziness and lightheadedness as well as some shortness of breath. The patient's blood pressures had also been borderline this morning and were lower with systolic in the low 100s. He was therefore taken for catheter directed thrombolytics. The patient also had inferior vena cava (IVC) filter placed and a peripherally inserted central catheter (PICC) line as well as a midline on other arm. PAST MEDICAL HISTORY: 1. Bipolar disorder. 2. Obstructive sleep apnea, not on CPAP. FAMILY HISTORY: No family history of blood clots or bleeding disorder. SOCIAL HISTORY: Current active smoker 4 or 5 cigarettes a day for the past 4 or 5 years. Denies any alcohol use or other drug use. ALLERGIES: To BENZOCAINE. HOME MEDICATIONS: - loratadine - Invega PHYSICAL EXAMINATION: Temperature 98.8, pulse 91, blood pressure 104/66, respirations 22, oxygen saturation 92-93% on 4 liters nasal cannula. General:. The patient is obese, is lying in bed in no acute distress, is able to speak in complete sentences and not using any accessory muscles for respiration. HEENT: Normocephalic. Pupils are reactive. Mucous membranes are moist. Neck is supple. No palpable adenopathy. Chest: Regular rate and rhythm. Normal S1, S2. No murmurs appreciated. Pulmonary: Clear to auscultation bilaterally. No wheezes, rales or rhonchi. Abdomen is obese, soft, mild tenderness in the right lower quadrant. Extremities: There is no lower extremity edema noted bilaterally. No calf tenderness bilaterally. Tenderness at insertion site for PICC line and midline. LABORATORY DATA: WBC 9.4, hemoglobin 15.3, platelets 214. Chemistry: Sodium 136, potassium 4.5, chloride 107, bicarbonate 21, BUN 12, creatinine 1.12, glucose 126, AST 71, ALT 87. Troponin had trended up and are now trending down this morning to 0.44. BNP was 415. EKG showed sinus tachycardia with S1Q3T3 pattern and T-waves in the inferior leads. IMAGES: Head CT was negative for any acute intracranial pathology. CTA- showed a saddle pulmonary embolism and large clot in the right main pulmonary artery and embolism completely filling the right lower lobe branches as well into the right infrahilar branches. There is also some clot burden in the right upper lobe branches and in the left pulmonary artery going into the infrahilar branches. There is a peripheral opacity in the right posterior gutter, which likely represents a pulmonary infarct. There is no significant adenopathy and no pleural effusions. ASSESSMENT AND PLAN: Mr. Marrero is a 28-year-old male with history of bipolar disorder and obstructive sleep apnea not compliant with CPAP. He presented with syncope times two. The patient also reported increasing shortness of breath and chest pain for the past few weeks. He was hypoxic on admission and tachycardic, was initially normotensive. He was found to have on CT angiogram to have a saddle pulmonary embolism, significant clot burden in the right side and also some clots in left pulmonary artery branches. The patient also had elevated BNP and troponins consistent with submassive pulmonary embolism (PE). Earlier this morning, he continued to report lightheadedness and dizziness and blood pressures had become more borderline with systolic in the low 100s and 90s. Therefore, after discussion with the hospitalist service, given his age and lack of comorbidities and with the submassive PE, the patient was sent for catheter directed thrombolytics. Post tissue plasminogen activator (tPA) his oxygen and blood pressure has improved. He also reports his dizziness has improve but he does continue to have some shortness of breath. We will continue with the heparin drip and post tPA protocol as per vascular. Continue with IV fluids with normal saline at 100 mL/h for now. We will discontinue once tolerating oral intake and advance his diet today. Continue with bowel regimen. The patient was warned about straining The patient with a possibly provoked PE with the risk factor of travel recently, obesity and he is also a current active smoker. Discussed with the patient that given his PE that he is strongly encouraged to discontinue smoking and that he will need likely 3- 6 months of anticoagulation. He will also need work-up for hypercoaguability. The patient had an IVC filter placed. We will followup with his lower extremity duplex. will also followup with echocardiogram to evaluate for right heart strain. He does have a history of untreated sleep apnea, which can also cause some pulmonary hypertension. The patient will need outpatient followup for a repeat sleep study and possible initiation of CPAP. His CT also showed peripheral opacity in RLL which is likely a pulmonary infarct but will need follow-up as an outpatient with repeat imaging in 4-6 weeks. Continue with nasal cannula oxygen supplementation and wean down as tolerated. Continue to monitor for signs of bleeding. We will keep an active type and screen. FULL CODE. MTDD
[2018-07-01] MEDS: NICOTINE 14 MG/24 HR TRANSDERMAL TD SCH (13:46)
[2018-07-01] MEDS: DOCUSATE SODIUM 100 MG CAP PO SCH ×2 (13:46→21:09)
[2018-07-01 15:37] LABS: HEMATOCRIT 41.5 % (42.0-52.0); HEMOGLOBIN 13.8 g/dl (13.5-17.5)
[2018-07-01 15:49] LABS: PARTIAL THROMBOPLASTIN TIME 56.3 SECONDS (25.4-37.6)
--- NOTE | 2018-07-01 16:11 | REP ---
HISTORY: Pain and swelling. TECHNIQUE: Multiple ultrasonographic images of the deep venous structures of the bilateral thighs were obtained from the common femoral vein to the popliteal vein along with Doppler interrogation and color flow Doppler images. FINDINGS: There is no abnormal echogenic material seen within any of the visualized deep venous structures that would suggest acute thrombosis. Coaptation is unremarkable throughout. Doppler interrogation shows an expected response to respiratory variability and augmentation. The color flow images show what appears to be a normal vascular pattern throughout. IMPRESSION: There is no ultrasonographic evidence of deep venous thrombosis involving any of the visualized deep venous structures of the bilateral thighs, as described above. Electronically Signed by Froy Mcgarry DO 07/01/2018 04:40 P
--- NOTE | 2018-07-01 16:12 | ECHO ---
DATE OF PROCEDURE: 06/30/2018 REFERRING PHYSICIAN: Abdulkadir Meek MD INDICATION: Syncope. HEIGHT: 67 inches WEIGHT: 145 kg 2D MEASUREMENTS: LVOT: 2.2 cm Aortic root: 2.8 cm Left atrium: 2.4 cm Ventricular septum: 0.74 cm Posterior wall: 1.02 cm Left ventricle diastole: 4.6 cm DOPPLER MEASUREMENTS: Trace aortic regurgitation. Aortic valve velocity: 83.2 cm/s Mitral E velocity 44.4 cm/s Mitral A velocity 38.3 cm/s Mitral deceleration time: 264 ms Mild tricuspid regurgitation. Estimated right ventricle systolic pressure 49 mmHg assuming a right atrial pressure of 5 mmHg. Very mild pulmonic regurgitation. Pulmonary artery systolic pressure 44 mmHg. MITRAL ANNULAR TISSUE DOPPLER: E prime septal: 7.94 cm/s E prime lateral: 11.3 cm/s DESCRIPTION: Rhythm was sinus. Image quality was adequate. No pericardial effusion. This was a 2D, M-mode, color flow Doppler and pulse wave Doppler examination that included mitral annular tissue Doppler. CONCLUSIONS: 1. Probably normal right ventricle size. Visual impression of moderate reduction in overall right ventricle systolic function. Suggestive of moderate elevation of pulmonary artery systolic pressure (44 mmHg) and moderate elevation of estimated right ventricle systolic pressure (49 mmHg). Mild tricuspid regurgitation and very mild pulmonic regurgitation. 2. Left ventricle systolic function at the lower end of normal. Left ventricular ejection fraction of 55%. No regional wall motion abnormalities of the left ventricle. Normal LV diastolic function. 3. Otherwise normal appearing echocardiogram Doppler findings.
[2018-07-01 21:11] LABS: HEMATOCRIT 37.8 % (42.0-52.0); HEMOGLOBIN 12.9 g/dl (13.5-17.5)
[2018-07-01] MEDS: HEPARIN DRIP 25,000 UNITS in APPROPRIATE DILUENT 1 EA IV SCH (21:15)
[2018-07-01 21:23] LABS: PARTIAL THROMBOPLASTIN TIME 49.3 SECONDS (25.4-37.6)
[2018-07-01] MEDS: ALTEPLASE RECOMBINANT 25 MG in NS 225 ML IV SCH (21:36)
[2018-07-02] VITALS (24 sets, daily range): BP systolic 113–153; BP diastolic 67–98
[2018-07-02 03:25] LABS: HEMATOCRIT 36.2 % (42.0-52.0); HEMOGLOBIN 12.1 g/dl (13.5-17.5); MEAN CORPUSCULAR HGB CONC 33.4 g/dl (32.0-36.5); MEAN CORPUSCULAR VOLUME 89.8 fl (80.0-96.0); PLATELET COUNT, AUTOMATED 150 10^3/uL (150-450); RED BLOOD COUNT 4.03 10^6/uL (4.30-6.10); WHITE BLOOD COUNT 9.9 10^3/uL (4.0-10.0)
[2018-07-02 03:38] LABS: PARTIAL THROMBOPLASTIN TIME 42.1 SECONDS (25.4-37.6)
[2018-07-02 04:08] LABS: BLOOD UREA NITROGEN 16 MG/DL (7-18); CALCIUM LEVEL 7.9 MG/DL (8.5-10.1); CARBON DIOXIDE LEVEL 27 MEQ/L (21-32); CHLORIDE LEVEL 106 MEQ/L (98-107); CREATININE FOR GFR 1.11 MG/DL (0.70-1.30); GLOMERULAR FILTRATION RATE > 60.0 (>60); GLUCOSE, FASTING 108 MG/DL (70-100); POTASSIUM SERUM 3.8 MEQ/L (3.5-5.1); SODIUM LEVEL 138 MEQ/L (136-145)
[2018-07-02] MEDS: ALTEPLASE RECOMBINANT 25 MG in NS 225 ML IV SCH (06:38)
[2018-07-02] MEDS: NICOTINE 14 MG/24 HR TRANSDERMAL TD SCH (08:46)
[2018-07-02] MEDS: DOCUSATE SODIUM 100 MG CAP PO SCH ×2 (08:46→21:07)
[2018-07-02 09:10] LABS: HEMATOCRIT 35.9 % (42.0-52.0)
[2018-07-02 09:26] LABS: PARTIAL THROMBOPLASTIN TIME 42.3 SECONDS (25.4-37.6)
--- NOTE | 2018-07-02 10:37 | IPNPDOC ---
Date Seen The patient was seen on 07/02/18. Progress Note SUBJECTIVE: Patient was seen and examined this morning. He currently states that his breathing has improved. He has been on room air. He denies any chest pain. He denies feeling lightheaded. Patient did note some bleeding around his IV spot. He otherwise has no complaints OBJECTIVE PHYSICAL EXAMINATION: VITAL SIGNS: Please see below. GENERAL: Awake, alert, and oriented. He does not appear in any acute distress. He is lying in bed comfortably HEENT: Atrumatic, normocephalic. Eyes are non-icteric trachea is midline. Neck is hernandez CARDIOVASCULAR: Normal S1, S2. Regular rate and rhythm. No clicks rubs or murmurs noted on examination RESPIRATORY: Clear vesicular breath sounds bilaterally with good respiratory effort. No wheezes, rhonci, or rales ABDOMINAL: Morbidly obese, soft, nontender to palpation throughout. No rebound tenderness or guarding. Positive bowel sounds throughout EXTREMITIES: No edema. Full and equal pulses in bilateral upper and lower extremities NEUROLOGICAL: No focal neurological deficits noted PSYCHOLOGICAL: Flat affect. Mood appears appropriate LABORATORY DATA, IMAGING STUDIES, MICROBIOLOGY: Please see below. DVT prophylaxis ordered?: YES ASSESSMENT AND PLAN: Patient is a 28 year old male with a history of bipolar disorder who presented to the [facility] ER with a complaint of two episodes of syncope associated with shortness of breath and chest pain. On admission the patient stated that he believes his symptoms were going on since the beginning of May. He stated that in the end of April he had travelled from [place] by [employer] bus to [place] which is approximately 7 hours. Patient denied any family history of blood clots or bleeding disorders. Patient stated that he had two episodes of syncope. The patient stated he was walking and developed shortness of breath and fell over. He was able to recover and walked again resulting in a second episode of syncope. PROBLEMS: 1. Saddle Pulmonary Embolism -Patient had imaging in the ER demonstrating a large saddle embolus in the right main pulmonary artery. The right pulmonary embolus fills the right inferior pulmonary artery and branches to the right lower lobe. There is also embolus to the right upper lobe pulmonary artery. Additionally, large pulmonary embolus within the left inferior pulmonary artery to the infrahilar branches -Patient at time of presentation was hemodynamically stable and was not given systemic thrombolytic therapy. The case was discussed with the Pulmonary/ICU polymerization engineer physician -The patient has been receiving IV fluids and appears to have blood pressures that are trending down. The patient also has elevated troponin. He continues to require supplemental oxygen. Additionally, the patient has a history of two episodes of likely exertional syncope. It is felt that the patient would benefit from thrombolytic therapy. The case was discussed with Vascular Surgery who agreed with catheter directed thrombolysis -Patient has had PICC line insertion and Altepase. Currently doing well. -Hypercoag workup pending. Patient will need to follow-up outpatient for further evaluation of etiology 2. Bipolar Depression -Trazodone -Patient receives Invega injections as an outpatient 3. Nicotine Dependence -Nicotine Patch 14mg A-FIB/CHADSVASC A-FIB History Current/History of A-Fib/PAF?: No VS, I&O, 24H, Fishbone Vital Signs/I&O Vital Signs Date Time Temp Pulse Resp B/P (MAP) Pulse Ox O2 Delivery O2 Flow Rate FiO2 07/02/18 06:00 69 125/82 (96) 99 1.0 07/02/18 04:00 97.5 16 06/30/18 21:06 Nasal Cannula I&O- Last 24 Hours up to 6 AM 07/02/18 06:00 Intake Total 3340 ml Output Total 1900 ml Balance 1440 ml Laboratory Data 24H LABS Laboratory Tests 2 07/01/18 15:11: Activated Partial Thromboplast Time 56.3H, Fibrinogen 333 07/01/18 21:00: Activated Partial Thromboplast Time 49.3H, Fibrinogen 302 07/02/18 03:06: Activated Partial Thromboplast Time 42.1H, Fibrinogen 311, Anion Gap 5L, Glomerular Filtration Rate > 60.0, Blood Urea Nitrogen 16, Creatinine 1.11, Sodium Level 138, Potassium Level 3.8, Chloride Level 106, Carbon Dioxide Level 27, Calcium Level 7.9L 07/02/18 03:07: Nucleated Red Blood Cells % (auto) 0.0 07/02/18 08:51: Activated Partial Thromboplast Time 42.3H, Fibrinogen 321 CBC/BMP Laboratory Tests 07/01/18 15:11 07/01/18 20:59 07/02/18 03:06 Calcium Level 7.9 L 07/02/18 03:07 Red Blood Count 4.03 L, Mean Corpuscular Volume 89.8, Mean Corpuscular Hemoglobin 30.0, Mean Corpuscular Hemoglobin Concent 33.4, Red Cell Distribution Width 13.2 07/02/18 08:51 GME ATTESTATION GME ATTESTATION My faculty preceptor for this patient encounter was physically present during the encounter and was fully available. All aspects of the patient interview, examination, medical decision making process, and medical care plan development were reviewed and approved by the faculty preceptor. The faculty preceptor is aware and concurs with the plan as stated in the body of this note and will attest to such by his/her cosignature. ATTENDING NOTE I saw and evaluated the patient. I agree with the findings and plan of care as documented in the resident's note ROSEMARY HATHAWAY DO July 02, 2018 10:37 DANIEL DAS ILVA MD July 03, 2018 16:40
--- NOTE | 2018-07-02 13:04 | CCN ---
DATE: 07/02/2018 The patient was seen and examined this morning during bedside rounds. He reports that his dizziness and lightheadedness has improved. He denies any chest pain. He does have some slight shortness of breath. Does not have any significant coughing. No hemoptysis. No abdominal pain. No nausea or vomiting. He had some oozing from his right PICC site. The patient is complaining of some back pain bilaterally. PHYSICAL EXAMINATION: Temperature 97.5, pulse 69, blood pressure 125/52, O2 sat 99% on 1 liter nasal cannula. General: The patient is obese and is lying in bed in no acute distress. He is able to speak in complete sentences and not using any accessory muscles for respiration. HEENT: Normocephalic. Pupils reactive. Mucous membranes are moist. Neck: Supple. No palpable adenopathy. Chest: Regular rate and rhythm. Normal S1 and S2. No murmurs appreciated. Pulmonary: Clear to auscultation bilaterally. No wheezes, rales, rhonchi. Abdomen is obese, soft, nontender. Extremities: There is no lower extremity edema noted bilaterally. No calf tenderness. There is some tenderness at the insertion site for his PICC line on the right and for his midline on the left. There is a palpable hematoma on his right where the PICC line is. The patient has some tenderness in his lower back. LABORATORY DATA: WBC 9.9, hemoglobin 12.1 - slightly lower from admission, platelets 150. Chemistry: Sodium 138, potassium 3.8, chloride 106, bicarb 27, BUN 16, creatinine 1.11, glucose 108, PTT 42.1. Echo showed evidence of elevated pulmonary systolic pressure of 44 mmHg and RV systolic pressure estimated at 49 mmHg. There is some moderate reduction in his RV systolic function and evidence of mild tricuspid valve regurgitation and pulmonic valve regurgitation. His ejection fraction (EF) is low normal at 55%. Lower extremity duplex with no evidence of deep vein thrombosis (DVT) in the lower extremities. ASSESSMENT/PLAN: Mr. Marrero is a 28-year-old male with history of bipolar disorder and obstructive sleep apnea not compliant with C-PAP who presented with syncope. He had also reported increasing shortness of breath and chest pain for the past few weeks. Initially on admission, the patient was hypoxemic and tachycardic. He was normotensive. He had a CT angiogram done which showed a saddle pulmonary embolism and significant clot burden in the right side and also some pulmonary embolisms in the left side branches. He also had elevated BNP and troponins consistent with a submassive pulmonary embolism. Yesterday, his blood pressures had become more borderline and he continued to be symptomatic. Therefore, he had catheter directed thrombolytics yesterday and an inferior vena cava (IVC) filter placed. Post thrombolytics, his blood pressures have improved and his oxygenation has also improved. The patient has been able to be weaned off of nasal cannula oxygen. Continue with heparin drip and t-PA as per vascular surgery and monitor his PTT. The patient's hemoglobin has trended down. Will continue to monitor and keep an active type and screen in case he needs transfusion. If patient's hemoglobin continues to trend down, would consider imaging for possible retroperitoneal bleed. The patient's echocardiogram does show evidence of right heart strain and elevated pulmonary artery pressures. He will need repeat echocardiogram in 3 months to follow up right heart pressures. If continue to be elevated, may be due to his diagnosis of untreated sleep apnea. He will also need outpatient followup for his sleep apnea with likely a repeat sleep study. The patient's CT did also show a peripheral opacity in the right lower lobe which is likely a pulmonary infarct, but he will need repeat imaging as an outpatient in 4-6 weeks to follow up resolution Will followup results of his hypercoagulability workup. He will need at least 3-6 months of anticoagulation and he is also strongly encouraged to continue smoking cessation. The patient had an IVC filter placed. His lower extremity duplex did not show any evidence of DVT. Will followup with vascular about when his filter can be removed. Full code. Total critical care time spent not including a procedures was approximately 45 minutes. MTDD
[2018-07-02 15:47] LABS: HEMATOCRIT 34.8 % (42.0-52.0); HEMOGLOBIN 11.7 g/dl (13.5-17.5)
[2018-07-02 15:59] LABS: PARTIAL THROMBOPLASTIN TIME 40.5 SECONDS (25.4-37.6)
[2018-07-02] MEDS: HEPARIN DRIP 25,000 UNITS in APPROPRIATE DILUENT 1 EA IV SCH (21:07)
[2018-07-02 21:15] LABS: HEMATOCRIT 35.2 % (42.0-52.0); HEMOGLOBIN 11.9 g/dl (13.5-17.5)
[2018-07-02 21:25] LABS: PARTIAL THROMBOPLASTIN TIME 40.3 SECONDS (25.4-37.6)
[2018-07-03] VITALS (23 sets, daily range): BP systolic 108–150; BP diastolic 64–95
[2018-07-03 03:46] LABS: HEMATOCRIT 33.9 % (42.0-52.0); HEMOGLOBIN 11.3 g/dl (13.5-17.5); MEAN CORPUSCULAR HEMOGLOBIN 30.3 pg (27.0-33.0); MEAN CORPUSCULAR HGB CONC 33.3 g/dl (32.0-36.5); MEAN CORPUSCULAR VOLUME 90.9 fl (80.0-96.0); PLATELET COUNT, AUTOMATED 134 10^3/uL (150-450); RED BLOOD COUNT 3.73 10^6/uL (4.30-6.10); WHITE BLOOD COUNT 7.4 10^3/uL (4.0-10.0)
[2018-07-03 03:57] LABS: PARTIAL THROMBOPLASTIN TIME 49.8 SECONDS (25.4-37.6)
[2018-07-03 04:15] LABS: BLOOD UREA NITROGEN 13 MG/DL (7-18); CALCIUM LEVEL 7.6 MG/DL (8.5-10.1); CARBON DIOXIDE LEVEL 27 MEQ/L (21-32); CHLORIDE LEVEL 108 MEQ/L (98-107); GLOMERULAR FILTRATION RATE > 60.0 (>60); GLUCOSE, FASTING 116 MG/DL (70-100); POTASSIUM SERUM 3.8 MEQ/L (3.5-5.1); SODIUM LEVEL 139 MEQ/L (136-145)
[2018-07-03] MEDS: ALTEPLASE RECOMBINANT 25 MG in NS 225 ML IV SCH (04:41)
[2018-07-03] MEDS: DOCUSATE SODIUM 100 MG CAP PO SCH ×2 (08:31→21:20)
[2018-07-03] MEDS: NICOTINE 14 MG/24 HR TRANSDERMAL TD SCH (08:31)
[2018-07-03 09:02] LABS: HEMATOCRIT 35.4 % (42.0-52.0); HEMOGLOBIN 11.6 g/dl (13.5-17.5)
--- NOTE | 2018-07-03 09:20 | IPNPDOC ---
Date Seen The patient was seen on 07/03/18. Progress Note SUBJECTIVE: Patient reports improved breathing he denies shortness of breath he tells me his chest pressure is improving he denies nausea vomiting diarrhea. He denies any bleeding dark tarry stools and hematuria. OBJECTIVE PHYSICAL EXAMINATION: VITAL SIGNS: Please see below. GENERAL: Awake, alert, and oriented. He does not appear in any acute distress. Sitting in a chair HEENT: Cranial nerves II through XII grossly intact moist mucous membranes CARDIOVASCULAR: Normal S1, S2. Regular rate and rhythm. No clicks rubs or murmurs noted on examination he is not tachycardic RESPIRATORY: Clear vesicular breath sounds bilaterally with good respiratory effort. ABDOMINAL: Morbidly obese, soft, nontender to palpation throughout. EXTREMITIES: No edema. Full and equal pulses in bilateral upper and lower extremities LABORATORY DATA, IMAGING STUDIES, MICROBIOLOGY: Please see below. DVT prophylaxis ordered?: Heparin drip status post TPA ASSESSMENT AND PLAN: Patient is a 28 year old male with a history of bipolar disorder as well as obstructive sleep apnea and noncompliant presented with A ssociated to be found to have submassive PE status post TPA PROBLEMS: 1. Submassive pulmonary embolism: Vascular surgery pulmonary help is greatly appreciated. The patient is doing much better at this time. She is not tachycardic is not hypoxic is tolerating TPN well. Once he has completed a I [place] pect he can be transitioned to by mouth eliquis to complete a 3 to 6 months course with close follow-up with pulmonary for repeat imaging for possible pulmonary infarct within the next 2 months as well as a repeat echocardiogram and outpatient hematology referral. He is morbidly obese likely has some pulmonary hypertension secondary to noncompliance with CPAP recent lengthy travel. He certainly could have genetic predisposition as well as hyper quite will work up is pending. 2. Bipolar Depression : Stable continue his trazodone and Phenergan injections outpatient 3. Nicotine Dependence : Continue with NicoDerm patches cessation counseling provided 4. Obstructive sleep apnea: Noncompliant with CPAP he will likely benefit from an outpatient sleep study and establishment with CPAP Disposition: Pending cessation of his TPA. He can potentially be transitioned to medical surgical floor he'll require as per oral at coagulation VS, I&O, 24H, Fishbone Vital Signs/I&O Vital Signs Date Time Temp Pulse Resp B/P (MAP) Pulse Ox O2 Delivery O2 Flow Rate FiO2 07/03/18 06:00 67 17 110/66 (81) 96 07/03/18 04:00 97.9 07/02/18 07:00 1.0 06/30/18 21:06 Nasal Cannula I&O- Last 24 Hours up to 6 AM 07/03/18 06:00 Intake Total 2667 ml Output Total 2525 ml Balance 142 ml Laboratory Data 24H LABS Laboratory Tests 2 07/02/18 15:40: Activated Partial Thromboplast Time 40.5H, Fibrinogen 351 07/02/18 20:56: Activated Partial Thromboplast Time 40.3H, Fibrinogen 342 07/03/18 03:30: Activated Partial Thromboplast Time 49.8H, Fibrinogen 342, Nucleated Red Blood Cells % (auto) 0.0, Anion Gap 4L, Glomerular Filtration Rate > 60.0, Blood Urea Nitrogen 13, Creatinine 1.00, Sodium Level 139, Potassium Level 3.8, Chloride Level 108H, Carbon Dioxide Level 27, Calcium Level 7.6L 07/03/18 08:43: CBC/BMP Laboratory Tests 07/02/18 15:40 07/02/18 20:58 07/03/18 03:30 Red Blood Count 3.73 L, Mean Corpuscular Volume 90.9, Mean Corpuscular Hemoglobin 30.3, Mean Corpuscular Hemoglobin Concent 33.3, Red Cell Distribution Width 13.3, Calcium Level 7.6 L DANIEL DA SILVA MD July 03, 2018 09:20
[2018-07-03 09:30] LABS: PARTIAL THROMBOPLASTIN TIME 47.9 SECONDS (25.4-37.6)
--- NOTE | 2018-07-03 12:29 | CCN ---
DATE: 07/03/2018 The patient was seen and examined this morning during rounds. He had no events overnight. This morning he reports his breathing has improved. He denies any chest pain. Has no abdominal pain. No nausea or vomiting. No bloody bowel movements. PHYSICAL EXAMINATION: Temperature 97.9, pulse 67, respiration 17, blood pressure 110/66, oxygen saturation 96% on room air. General: The patient is an obese male, is sitting in a chair in no acute distress. Is able to speak in complete sentences and is not using any accessory muscles for respiration. HEENT: He is normocephalic, atraumatic. Pupils are reactive. Mucous membranes are moist. Neck is supple. There is no palpable adenopathy. Chest: Regular rate and rhythm. Normal S1, S2. No murmurs appreciated. Pulmonary: Clear to auscultation bilaterally. No wheezes, rales or rhonchi. No accessory muscle use. Abdomen is obese, soft and nontender. Extremities: There is no lower extremity edema noted bilaterally. The patient has a PICC line in the left midline. There is some slight tenderness in the insertion site. LABORATORY DATA WBC 7.4, hemoglobin 11.3, platelets 134. Chemistry: Sodium 139, potassium 3.8, chloride 106, bicarbonate 27, BUN 13, creatinine 1.0, glucose 116, PTT is 49.8. ASSESSMENT/PLAN The patient is a 28-year-old male with a past medical history of bipolar disorder and obstructive sleep apnea, noncompliant with C-PAP, who presented with syncope and a history of increased shortness of breath and chest pain for the past few weeks. The patient was found to have large pulmonary embolism with a saddle component and significant clot burden in the right side pulmonary branches and some clot in the left side as well. He had elevated BNP and troponins consistent with a massive pulmonary embolism. The patient was hypoxic, requiring nasal cannula oxygen supplementation with borderline blood pressures and he therefore underwent catheter directed thrombolytics and had placement of an IVC filter. The patient has been on heparin and TPA as per vascular surgery with monitoring of his PTT and adjustment as needed. We will followup with their recommendations about discontinuing of TPA. His platelets have been trending down while on heparin, will continue to monitor. The patient can likely then be transitioned to oral anticoagulants. His weight is above 120 kg, which means he is above the studied weight for the novel oral anticoagulant agents and therefore he would need an testing as an outpatient once on the direct oral anticoagulants for peak and trough levels using anti factor Xa assay to make sure he is adequately anticoagulated. The patient's echo also showed evidence of some right heart strain and elevated pulmonary artery pressures. He will need repeat echocardiogram in 3 months to followup his right heart pressures and if elevated may be due to his history of untreated sleep apnea and he will need further workup as an outpatient for his sleep apnea. The patient also had a peripheral opacity in his right lower lobe on CT, which is likely a pulmonary infarct, but he will need repeat imaging as an outpatient in 4 to 6 weeks to follow up resolution. The patient also had IVC filter placed but his lower extremity duplex is negative and he does not have any contraindications for anticoagulation, so he will need the filter removed. We will followup with vascular about when his filter should be removed. There is some question about him returning to [place] to get followup there, which will complicate some of his issues. We will followup the results of his hypercoagulable workup and he will need at least 3-6 months for anticoagulation. He is strongly encouraged to continue smoking cessation. Total critical care time spent, not including any procedures, approximately 35 minutes. Please do not hesitate to call if any further questions or concerns MTDD
[2018-07-03 15:46] LABS: HEMATOCRIT 33.6 % (42.0-52.0); HEMOGLOBIN 11.1 g/dl (13.5-17.5)
[2018-07-03 15:58] LABS: PARTIAL THROMBOPLASTIN TIME 48.6 SECONDS (25.4-37.6)
[2018-07-03] MEDS: HEPARIN DRIP 25,000 UNITS in APPROPRIATE DILUENT 1 EA IV SCH (17:52)
[2018-07-03 21:33] LABS: HEMATOCRIT 33.4 % (42.0-52.0); HEMOGLOBIN 11.1 g/dl (13.5-17.5)
[2018-07-03 21:45] LABS: PARTIAL THROMBOPLASTIN TIME 49.2 SECONDS (25.4-37.6)
[2018-07-04] VITALS (10 sets, daily range): BP systolic 107–140; BP diastolic 64–83
[2018-07-04 03:53] LABS: HEMATOCRIT 31.7 % (42.0-52.0); HEMOGLOBIN 10.5 g/dl (13.5-17.5); MEAN CORPUSCULAR HEMOGLOBIN 30.3 pg (27.0-33.0); MEAN CORPUSCULAR HGB CONC 33.1 g/dl (32.0-36.5); MEAN CORPUSCULAR VOLUME 91.4 fl (80.0-96.0); PLATELET COUNT, AUTOMATED 140 10^3/uL (150-450); RED BLOOD COUNT 3.47 10^6/uL (4.30-6.10); WHITE BLOOD COUNT 7.1 10^3/uL (4.0-10.0)
[2018-07-04 04:10] LABS: PARTIAL THROMBOPLASTIN TIME 63.2 SECONDS (25.4-37.6)
[2018-07-04 04:25] LABS: BLOOD UREA NITROGEN 12 MG/DL (7-18); CALCIUM LEVEL 7.8 MG/DL (8.5-10.1); CARBON DIOXIDE LEVEL 28 MEQ/L (21-32); CHLORIDE LEVEL 108 MEQ/L (98-107); CREATININE FOR GFR 0.94 MG/DL (0.70-1.30); GLOMERULAR FILTRATION RATE > 60.0 (>60); GLUCOSE, FASTING 106 MG/DL (70-100); POTASSIUM SERUM 3.8 MEQ/L (3.5-5.1); SODIUM LEVEL 139 MEQ/L (136-145)
[2018-07-04] MEDS: HEPARIN DRIP 25,000 UNITS in APPROPRIATE DILUENT 1 EA IV SCH (06:30)
[2018-07-04] MEDS: NICOTINE 14 MG/24 HR TRANSDERMAL TD SCH (08:12)
[2018-07-04] MEDS: DOCUSATE SODIUM 100 MG CAP PO SCH ×2 (08:12→21:00)
--- NOTE | 2018-07-04 08:34 | IPNPDOC ---
Date Seen The patient was seen on 07/04/18. Progress Note HPI: 28 year old M presented to ER 06/30/18 after two episodes of syncope, associated with SOB and chest pain. Apparently patient recently traveled from [place] to the [facility] by [employer], which was about 7 hours-long trip. Pt has no personal or family hx of blood clot or bleeding disorder. In the ER, pt was hypoxic, and required 4L of O2 by NC to maintain O2 sat 92- 95%. He had mild tachycardia, HR in low 100. BP stable. Pro-BNP 415. Troponin noted to be 0.58 with recheck 0.44. CTA showed saddle PE on right main PA. The patient was noted to have blood pressure is 99-109 systolic despite IV fluids at 100 cc per hour. Vascular surgery was consulted for any further recommendations. The pt is S/P Pulmonary thrombolysis 07/01/18, Thrombolytic d/c this am at 6:30. Also s/p IVC Filter placement. BLE US neg for DVT 07/01/18. The pt states he is feeling better. Denies shortness of breath or chest pain. States he has been out of bed in his room. The patient has been weaned off supplemental oxygen, sats are 98-99%. Denies any prior history of bleeding, hematuria, GI bleeding, epistaxis. Denies prior history of head trauma,stroke. The patient states he has never been on a nticoagulants. Platelet count is noted to be 140, hemoglobin 10.5. Stool for occult blood pending. Denies any fevers, chills, weakness, fatigue, Headache, Chest Pain, Shortness of breath, cough, palpitations, abdominal pain, N/V/D or changes in bowel or bladder habits. PMHx: Bipolar disorder M Obesity. BMI 47.2. PSHX: Denies PE: GEN: 28 yo M, appears stated age. Currently comfortable resting in bed. Alert and oriented x 3. HEENT: Normocephalic, atraumatic. Sclera are nonicteric. Conjunctiva without injection. Nose midline. No facial asymmetry. Moist mucous membranes. CHEST: Regular rate and rhythm, +S1, +S2 LUNGS: Clear to auscultation bilaterally. Few wheezes left base, no rales, or rhonchi appreciated. Breathing is currently comfortable. No accessory muscle use. ABD: Round, soft, non-tender, non-distended. +Bowel sounds throughout. No rebound or guarding. EXT: Pulses 2+ bilaterally dorsalis pedis and radial. No lower extremity edema appreciated. SKIN: [place], dry, warm. Capillary refill <2sec. No rashes. NEURO: Alert and oriented x 3. Cranial nerves III-XII are intact. No focal deficits appreciated. CTA chest 1. This study is highly positive for pulmonary embolus with a large saddle embolus in the right main pulmonary artery. 2. The right pulmonary embolus fills the right inferior pulmonary artery and branches to the right lower lobe. There is also embolus to the right upper lobe pulmonary artery. 3. Large pulmonary embolus within the left inferior pulmonary artery to the infrahilar branches.Findings were discussed with LARY LOCKE at 06/30/2018 6:40 PM EDT. Electronically signed by: Hugh Padilla On 06/30/2018 19:01:34 PM BLE US There is no ultrasonographic evidence of deep venous thrombosis involving any of the visualized deep venous structures of the bilateral thighs, as described above. Electronically Signed by Froy Mcgarry DO 07/01/2018 04:40 P TTE 1. Probably normal right ventricle size. Visual impression of moderate reduction in overall right ventricle systolic function. Suggestive of moderate elevation of pulmonary artery systolic pressure (44 mmHg) and moderate elevation of estimated right ventricle systolic pressure (49 mmHg). Mild tricuspid regurgitation and very mild pulmonic regurgitation. 2. Left ventricle systolic function at the lower end of normal. Left ventricular ejection fraction of 55%. No regional wall motion abnormalities of the left ventricle. Normal LV diastolic function. 3. Otherwise normal appearing echocardiogram Doppler findings. DD: Colt Hamm MD [facility] 07/01/18 1600 A&P: 28 year old M presented to ER 06/30/18 after two episodes of syncope, associated with SOB and chest pain. Apparently patient recently traveled from [place] to the [facility] by [place], which was about 7 hours-long trip. Pt has no personal or family hx of blood clot or bleeding disorder. In the ER, pt was hypoxic, and required 4L of O2 by NC to maintain O2 sat 92- 95%. He had mild tachycardia, HR in low 100. BP stable. Pro-BNP 415. Troponin noted to be 0.58 with recheck 0.44. CTA showed saddle PE on right main PA. Currently the patient states he is still feeling short of breath, palpitations yesterday. He reports no episodes of dizziness or lightheadedness currently. The patient was noted to have blood pressure is 99-109 systolic despite IV fluids at 100 cc per hour. Vascular surgery was consulted for any further recommendations, possibly consider thrombolysis. 1. Pulmonary embolism. S/P thrombolysis, thrombolytic d/c this AM 6:30. S/P IVC filter. Possibly provoked by recent bus trip and morbid obesity. The pt states he is feeling better, denies CP/SOB. Off O2. VSS. TTE as above. Discussed AC recommendations with Dr Barr, Would recommend avoid NOAC. Pt remains on heparin gtt. Lovenox 140 mg subcutaneous every 12, this is placed on hold currently. Would continue to hold an additional 48hrs. Recommend Coumadin anticoagulation, can start today. Plan for Lovenox bridging until INR therapeutic. Plan is relayed to Dr Hermosillo. 2. Bipolar disorder. Management as per primary team. 3. morbid obesity. Complicates care. A-FIB/CHADSVASC A-FIB History Current/History of A-Fib/PAF?: No VS, I&O, 24H, Fishbone Vital Signs/I&O Vital Signs Date Time Temp Pulse Resp B/P (MAP) Pulse Ox O2 Delivery O2 Flow Rate FiO2 07/04/18 07:51 97.3 07/04/18 07:08 68 18 120/70 (87) 99 07/02/18 07:00 1.0 06/30/18 21:06 Nasal Cannula I&O- Last 24 Hours up to 6 AM 07/04/18 06:00 Intake Total 2836 ml Output Total 2650 ml Balance 186 ml Laboratory Data 24H LABS Laboratory Tests 2 07/03/18 08:43: Activated Partial Thromboplast Time 47.9H, Fibrinogen 340 07/03/18 15:31: Activated Partial Thromboplast Time 48.6H, Fibrinogen 344 07/03/18 17:45: Bedside Glucose (Misc Panel) 95 07/03/18 21:20: Activated Partial Thromboplast Time 49.2H, Fibrinogen 372 07/04/18 03:22: Nucleated Red Blood Cells % (auto) 0.0, Activated Partial Thromboplast Time 63.2H, Fibrinogen 340, Anion Gap 3L, Glomerular Filtration Rate > 60.0, Blood Urea Nitrogen 12, Creatinine 0.94, Sodium Level 139, Potassium Level 3.8, Chloride Level 108H, Carbon Dioxide Level 28, Calcium Level 7.8L CBC/BMP Laboratory Tests 07/03/18 08:43 07/03/18 15:31 07/03/18 21:20 07/04/18 03:22 Red Blood Count 3.47 L, Mean Corpuscular Volume 91.4, Mean Corpuscular Hemoglobin 30.3, Mean Corpuscular Hemoglobin Concent 33.1, Red Cell Distribution Width 13.2, Calcium Level 7.8 L Annie Robert July 04, 2018 08:34
[2018-07-04 09:28] LABS: HEMATOCRIT 32.9 % (42.0-52.0); HEMOGLOBIN 10.8 g/dl (13.5-17.5)
[2018-07-04 09:42] LABS: PARTIAL THROMBOPLASTIN TIME 61.2 SECONDS (25.4-37.6)
[2018-07-04] MEDS: HEPARIN SOD (PORCINE) 5000 UNITS/ML VIAL IV PRN (11:16)
[2018-07-04 11:35] LABS: INR 0.99; PROTHROMBIN TIME 13.2 SECONDS (12.1-14.4)
--- NOTE | 2018-07-04 13:43 | IPNPDOC ---
Date Seen The patient was seen on 07/04/18. Progress Note SUBJECTIVE: Patient was seen and examined this morning. He currently denies shortness of breath or chest pain. He states that he is feeling well. There have been no adverse events reported overnight. He admits to minor bleeding at his IV site. He denies blood in his stool. Patient does state that he is planning on moving back to [place], [place] at some point. This would complicate care as he will have a lot to follow-up on as an outpatient OBJECTIVE PHYSICAL EXAMINATION: VITAL SIGNS: Please see below. GENERAL: Awake, alert, and oriented. He is in no acute distress. He is lying in bed comfortably HEENT: Atruamatic, normocephalic. Eyes are nonicteric. Trachea is midline. Mucous membranes are pink and moist. Eyes are nonicteric. Neck is hernandez CARDIOVASCULAR: Normal S1, S2. Regular rate and rhythm. Slightly distant heart sounds. No clicks, rubs, or murmurs RESPIRATORY: Clear vesicular breath sounds bilaterally. Good respiratory effort. No wheezes, rhonci, or rales ABDOMINAL: Morbidly obese. Soft, nondistended. Nontender to palpation of all 4 quadrants. Positive bowel sounds throughout EXTREMITIES: No edema. PICC line in place without bleeding or erythema. Pulses are full and equal in bilateral upper and lower extremities NEUROLOGICAL: No focal neurological deficits PSYCHOLOGICAL: Flat affect. Normal mood LABORATORY DATA, IMAGING STUDIES, MICROBIOLOGY: Please see below. Echocardiogram: DATE OF PROCEDURE: 06/30/2018 REFERRING PHYSICIAN: Abdulkadir Meek MD INDICATION: Syncope. HEIGHT: 67 inches WEIGHT: 145 kg 2D MEASUREMENTS: LVOT: 2.2 cm Aortic root: 2.8 cm Left atrium: 2.4 cm Ventricular septum: 0.74 cm Posterior wall: 1.02 cm Left ventricle diastole: 4.6 cm DOPPLER MEASUREMENTS: Trace aortic regurgitation. Aortic valve velocity: 83.2 cm/s Mitral E velocity 44.4 cm/s Mitral A velocity 38.3 cm/s Mitral deceleration time: 264 ms Mild tricuspid regurgitation. Estimated right ventricle systolic pressure 49 mmHg assuming a right atrial pressure of 5 mmHg. Very mild pulmonic regurgitation. Pulmonary artery systolic pressure 44 mmHg. MITRAL ANNULAR TISSUE DOPPLER: E prime septal: 7.94 cm/s E prime lateral: 11.3 cm/s DESCRIPTION: Rhythm was sinus. Image quality was adequate. No pericardial effusion. This was a 2D, M-mode, color flow Doppler and pulse wave Doppler examination that included mitral annular tissue Doppler. CONCLUSIONS: 1. Probably normal right ventricle size. Visual impression of moderate reduction in overall right ventricle systolic function. Suggestive of moderate elevation of pulmonary artery systolic pressure (44 mmHg) and moderate elevation of estimated right ventricle systolic pressure (49 mmHg). Mild tricuspid regurgitation and very mild pulmonic regurgitation. 2. Left ventricle systolic function at the lower end of normal. Left ventricular ejection fraction of 55%. No regional wall motion abnormalities of the left ventricle. Normal LV diastolic function. 3. Otherwise normal appearing echocardiogram Doppler findings. DD: Colt Hamm MD [facility] 07/01/18 1600 DVT prophylaxis ordered?: YES ASSESSMENT AND PLAN: Patient is a 28 year old male with a history of bipolar disorder who presented to the [facility] ER with a complaint of two episodes of syncope associated with shortness of breath and chest pain. On admission the patient stated that he believes his symptoms were going on since the beginning of May. He stated that in the end of April he had travelled from [place] by [employer] bus to [place] which is approximately 7 hours. Patient denied any family history of blood clots or bleeding disorders. Patient stated that he had two episodes of syncope. The patient stated he was walking and developed shortness of breath and fell over. He was able to recover and walked again resulting in a second episode of syncope. Patient was found to have a pulmonary embolism. He received catheter directed thrombolysis per vascular surgery PROBLEMS: 1. Submassive Pulmonary Embolism -Patient came in with a pulmonary embolism and signs of right heart strain. Echocardiogram results as stated above. Patient has elevated pulmonary artery pressures. -Patient was seen by Vascular Surgery for catheter directed thrombolysis. Patient has completed tpa treatment this morning. Current plan to keep patient on Heparin drip and begin Coumadin 7.5mg daily. Titrate for INR 2.0-3.0. Will start lovenox 140mg SQ tomorrow and bridge for 48 hours. Will continue coumadin outpatient. Case was discussed with Vascular Surgery. -Patient has had an IVC filter placed and will need this removed at some point as an outpatient. He currently has no contraindications to anticoagulation and has no sign of DVTs -As discussed with Vascular surgery, given the severity of the patients PE, he would be a more appropriate candidate for Coumadin for at least three months. At that point a NOAC may be considered. The patient will likely need life long anticoagulation if he has a coaulopathy -Patient has multiple risk factors for PE including, obesity, smoking, and history of long travel. 2. Hypercoagulable state/Coagulopathy -Patient has CT imaging demonstrated a likely pulmonary infarct and will need re-imaging in 4-6 weeks as recommended by Pulmonary/ICU Medicine. -Regarding patients PE, he has not had a DVT. He currently has an IVC filter in place. He does have a history of a 7 [address] ride from [facility] to [facility]. He likely has had multiple PE's for sometime before developing his current one. His hypercoagulable workup is pending. He will need to follow up outpatient -Patient has been counseled on smoking cessation and healthy diet/weight loss 3. Bipolar Depression -Currently stable. Will continue trazodone. Patient receives Invega Injections outpatient 4. Nicotine Dependence -Patient has received smoking cessation counseling. Will continue nicotine patch 5. Obstructive Sleep Apnea -Patient is morbidly obese and likely has JOHN or at least obesity hypoventilation. He has had elevated pulmonary artery pressures on his Echocardiogram -Patient will benefit from outpatient sleep study to assess for JOHN. He will benefit from CPAP if diagnosis of JOHN is established DISPOSITION: Patient will transferred to Med/Surg today. A-FIB/CHADSVASC A-FIB History Current/History of A-Fib/PAF?: No VS, I&O, 24H, Fishbone Vital Signs/I&O Vital Signs Date Time Temp Pulse Resp B/P (MAP) Pulse Ox O2 Delivery O2 Flow Rate FiO2 07/04/18 12:37 97.9 72 18 115/71 (86) 98 07/02/18 07:00 1.0 06/30/18 21:06 Nasal Cannula I&O- Last 24 Hours up to 6 AM 07/04/18 06:00 Intake Total 2836 ml Output Total 2650 ml Balance 186 ml Laboratory Data 24H LABS Laboratory Tests 2 07/03/18 15:31: Activated Partial Thromboplast Time 48.6H, Fibrinogen 344 07/03/18 17:45: Bedside Glucose (Misc Panel) 95 07/03/18 21:20: Activated Partial Thromboplast Time 49.2H, Fibrinogen 372 07/04/18 03:22: Activated Partial Thromboplast Time 63.2H, Fibrinogen 340, Nucleated Red Blood Cells % (auto) 0.0, Anion Gap 3L, Glomerular Filtration Rate > 60.0, Blood Urea Nitrogen 12, Creatinine 0.94, Sodium Level 139, Potassium Level 3.8, Chloride Level 108H, Carbon Dioxide Level 28, Calcium Level 7.8L 07/04/18 08:59: Prothrombin Time 13.2, Prothromb Time International Ratio 0.99, Activated Partial Thromboplast Time 61.2H CBC/BMP Laboratory Tests 07/03/18 15:31 07/03/18 21:20 07/04/18 03:22 Red Blood Count 3.47 L, Mean Corpuscular Volume 91.4, Mean Corpuscular Hemoglobin 30.3, Mean Corpuscular Hemoglobin Concent 33.1, Red Cell Distribution Width 13.2, Calcium Level 7.8 L 07/04/18 08:59 GME ATTESTATION GME ATTESTATION My faculty preceptor for this patient encounter was physically present during the encounter and was fully available. All aspects of the patient interview, examination, medical decision making process, and medical care plan development were reviewed and approved by the faculty preceptor. The faculty preceptor is a piedra and concurs with the plan as stated in the body of this note and will attest to such by his/her cosignature. ATTENDING NOTE I saw and evaluated the patient. I agree with the findings and plan of care as documented in the resident's note ROSEMARY HATHAWAY DO July 04, 2018 13:43 DANIEL DA SILVA MD July 04, 2018 14:50
[2018-07-04] MEDS: WARFARIN SOD 7.5 MG TAB PO SCH (16:55)
[2018-07-05] VITALS (7 sets, daily range): BP systolic 120–150; BP diastolic 58–87
[2018-07-05] MEDS: HEPARIN SOD (PORCINE) 5000 UNITS/ML VIAL IV PRN ×2 (01:44→18:24)
[2018-07-05] MEDS: HEPARIN DRIP 25,000 UNITS in APPROPRIATE DILUENT 1 EA IV SCH ×2 (01:46→21:08)
[2018-07-05 04:01] LABS: HEMATOCRIT 31.5 % (42.0-52.0); HEMOGLOBIN 10.4 g/dl (13.5-17.5); MEAN CORPUSCULAR HEMOGLOBIN 29.7 pg (27.0-33.0); PLATELET COUNT, AUTOMATED 151 10^3/uL (150-450); WHITE BLOOD COUNT 8.4 10^3/uL (4.0-10.0)
[2018-07-05 04:15] LABS: INR 1.12; PROTHROMBIN TIME 14.6 SECONDS (12.1-14.4)
[2018-07-05 04:27] LABS: BLOOD UREA NITROGEN 9 MG/DL (7-18); CALCIUM LEVEL 8.3 MG/DL (8.5-10.1); CARBON DIOXIDE LEVEL 28 MEQ/L (21-32); CHLORIDE LEVEL 107 MEQ/L (98-107); CREATININE FOR GFR 0.88 MG/DL (0.70-1.30); GLOMERULAR FILTRATION RATE > 60.0 (>60); GLUCOSE, FASTING 93 MG/DL (70-100); SODIUM LEVEL 138 MEQ/L (136-145)
[2018-07-05] MEDS: DOCUSATE SODIUM 100 MG CAP PO SCH ×2 (08:46→21:09)
[2018-07-05] MEDS: NICOTINE 14 MG/24 HR TRANSDERMAL TD SCH (08:47)
--- NOTE | 2018-07-05 08:50 | IPNPDOC ---
Date Seen The patient was seen on 07/05/18. Progress Note HPI: 28 year old M presented to ER 06/30/18 after two episodes of syncope, associated with SOB and chest pain. Apparently patient recently traveled from [place] to the [facility] by [employer], which was about 7 hours-long trip. Pt has no personal or family hx of blood clot or bleeding disorder. In the ER, pt was hypoxic, and required 4L of O2 by NC to maintain O2 sat 92- 95%. He had mild tachycardia, HR in low 100. BP stable. Pro-BNP 415. Troponin noted to be 0.58 with recheck 0.44. CTA showed saddle PE on right main PA. The patient was noted to have blood pressure is 99-109 systolic despite IV fluids at 100 cc per hour. Vascular surgery was consulted for any further recommendations. The pt is S/P Pulmonary thrombolysis 07/01/18, Thrombolytic d/c 07/04/18. Also s/p IVC Filter placement 07/01/18. BLE US neg for DVT 07/01/18. The pt states he is feeling better. Denies shortness of breath or chest pain. States he has been out of bed in his room. The patient has been weaned off supplemental oxygen, sats are 98-100%. Pt denies any bleeding. Denies any prior history of bleeding, hematuria, GI bleeding, epistaxis. Denies prior history of head trauma,stroke. The patient states he has never been on anticoagulants. Platelet count is noted to be 151 hemoglobin 10.4. Stool for occult blood x 1 neg. Denies any fevers, chills, weakness, fatigue, Headache, Chest Pain, Shortness of breath, cough, palpitations, abdominal pain, N/V/D or changes in bowel or bladder habits. PMHx: Bipolar disorder M Obesity. BMI 47.2. PSHX: Denies PE: GEN: 28 yo M, appears stated age. Currently comfortable resting in bed. Alert and oriented x 3. HEENT: Normocephalic, atraumatic. Sclera are nonicteric. Conjunctiva without injection. Nose midline. No facial asymmetry. Moist mucous membranes. CHEST: Regular rate and rhythm, +S1, +S2 LUNGS: Clear to auscultation bilaterally. Few wheezes left base, no rales, or rhonchi appreciated. Breathing is currently comfortable. No accessory muscle use. ABD: Round, soft, non-tender, non-distended. +Bowel sounds throughout. No rebound or guarding. EXT: Pulses 2+ bilaterally dorsalis pedis and radial. No lower extremity edema appreciated. SKIN: [place], dry, warm. Capillary refill <2sec. No rashes. NEURO: Alert and oriented x 3. Cranial nerves III-XII are intact. No focal deficits appreciated. CTA chest 1. This study is highly positive for pulmonary embolus with a large saddle embolus in the right main pulmonary artery. 2. The right pulmonary embolus fills the right inferior pulmonary artery and branches to the right lower lobe. There is also embolus to the right upper lobe pulmonary artery. 3. Large pulmonary embolus within the left inferior pulmonary artery to the infrahilar branches.Findings were discussed with LARY LOCKE at 06/30/2018 6:40 PM EDT. Electronically signed by: Hugh Padilla On 06/30/2018 19:01:34 PM BLE US There is no ultrasonographic evidence of deep venous thrombosis involving any of the visualized deep venous structures of the bilateral thighs, as described above. Electronically Signed by Froy Mcgarry DO 07/01/2018 04:40 P TTE 1. Probably normal right ventricle size. Visual impression of moderate reduction in overall right ventricle systolic function. Suggestive of moderate elevation of pulmonary artery systolic pressure (44 mmHg) and moderate elevation of estimated right ventricle systolic pressure (49 mmHg). Mild tricuspid regurgitation and very mild pulmonic regurgitation. 2. Left ventricle systolic function at the lower end of normal. Left ventricular ejection fraction of 55%. No regional wall motion abnormalities of the left ventricle. Normal LV diastolic function. 3. Otherwise normal appearing echocardiogram Doppler findings. DD: Colt Hamm MD [facility] 07/01/18 1600 A&P: 28 year old M presented to ER 06/30/18 after two episodes of syncope, associated with SOB and chest pain. Apparently patient recently traveled from [place] to the [facility] by [employer], which was about 7 hours-long trip. Pt has no personal or family hx of blood clot or bleeding disorder. In the ER, pt was hypoxic, and required 4L of O2 by NC to maintain O2 sat 92- 95%. He had mild tachycardia, HR in low 100. BP stable. Pro-BNP 415. Troponin noted to be 0.58 with recheck 0.44. CTA showed saddle PE on right main PA. Currently the patient states he is still feeling short of breath, palpitations yesterday. He reports no episodes of dizziness or lightheadedness currently. The patient was noted to have blood pressure is 99-109 systolic despite IV fluid s at 100 cc per hour. Vascular surgery was consulted for any further recommendations, possibly consi abbie thrombolysis. 1. Pulmonary embolism. S/P thrombolysis, thrombolytic d/c this AM 6:30. S/P IVC filter. Possibly provoked by recent bus trip and morbid obesity. The pt states he is feeling better, denies CP/SOB. Off O2. VSS. TTE as above. Recommendations as per Dr Barr, Would recommend avoid NOAC. Pt remains on heparin gtt. Lovenox 140 mg subcutaneous every 12, this is placed on hold currently. Would continue to hold an additional until 07/06/18. Coumadin anticoagulation. Plan for Lovenox bridging until INR therapeutic. Plan is relayed to Dr Hermosillo 07/04/18. 2. Bipolar disorder. Management as per primary team. 3. morbid obesity. Complicates care. A-FIB/CHADSVASC A-FIB History Current/History of A-Fib/PAF?: No VS, I&O, 24H, Fishbone Vital Signs/I&O Vital Signs Date Time Temp Pulse Resp B/P (MAP) Pulse Ox O2 Delivery O2 Flow Rate FiO2 07/05/18 08:00 96.9 58 16 120/69 (86) 100 07/02/18 07:00 1.0 06/30/18 21:06 Nasal Cannula I&O- Last 24 Hours up to 6 AM 07/05/18 06:00 Intake Total 1712 ml Output Total 1900 ml Balance -188 ml Laboratory Data 24H LABS Laboratory Tests 2 07/04/18 08:59: Prothrombin Time 13.2, Prothromb Time International Ratio 0.99, Activated Partial Thromboplast Time 61.2H 07/04/18 16:56: Activated Partial Thromboplast Time 149.7*H 07/05/18 01:00: Activated Partial Thromboplast Time 62.8H 07/05/18 03:50: Prothrombin Time 14.6H, Prothromb Time International Ratio 1.12, Nucleated Red Blood Cells % (auto) 0.0, Anion Gap 3L, Glomerular Filtration Rate > 60.0, Blood Urea Nitrogen 9, Creatinine 0.88, Sodium Level 138, Potassium Level 4.0, Chloride Level 107, Carbon Dioxide Level 28, Calcium Level 8.3L CBC/BMP Laboratory Tests 07/04/18 08:59 07/05/18 03:50 Red Blood Count 3.50 L, Mean Corpuscular Volume 90.0, Mean Corpuscular Hemoglobin 29.7, Mean Corpuscular Hemoglobin Concent 33.0, Red Cell Distribution Width 13.2, Calcium Level 8.3 L Microbiology Microbiology 07/04/18 Stool Occult Blood (EMILIE) - Final, Complete Annie Robert July 05, 2018 08:49
--- NOTE | 2018-07-05 13:44 | IPNPDOC ---
Date Seen The patient was seen on 07/05/18. Progress Note SUBJECTIVE: No overt overnight issue. No bleeding and no shortness of breath. No bleeding overnight. Still on heparin drip for now. Lovenox sc only to be started once clear by vascular to do so after s/p thrombolytic therapy. Patient does state that he is planning on moving back to [place], [place] in a month or two month. Explained that this would complicate care as he will have a lot to follow-up on as an outpatient. Plan will be to set up follow follow ups in [place] as he had no definite date of his move as of yet. OBJECTIVE PHYSICAL EXAMINATION: VITAL SIGNS: Please see below. GENERAL: Awake, alert, and oriented. He is in no acute distress. He is lying in bed comfortably HEENT: Atruamatic, normocephalic. Eyes are nonicteric. Trachea is midline. Mucous membranes are pink and moist. Eyes are nonicteric. Neck is hernandez CARDIOVASCULAR: Normal S1, S2. Regular rate and rhythm. Slightly distant heart sounds. No clicks, rubs, or murmurs RESPIRATORY: Clear vesicular breath sounds bilaterally. Good respiratory effort. No wheezes, rhonci, or rales ABDOMINAL: Morbidly obese. Soft, nondistended. Nontender to palpation of all 4 quadrants. Positive bowel sounds throughout EXTREMITIES: No edema. PICC line in place without bleeding or erythema. Pulses are full and equal in bilateral upper and lower extremities NEUROLOGICAL: No focal neurological deficits PSYCHOLOGICAL: Flat affect. Normal mood LABORATORY DATA, IMAGING STUDIES, MICROBIOLOGY: Please see below. Echocardiogram: DATE OF PROCEDURE: 06/30/2018 REFERRING PHYSICIAN: Abdulkadir Meek MD INDICATION: Syncope. HEIGHT: 67 inches WEIGHT: 145 kg 2D MEASUREMENTS: LVOT: 2.2 cm Aortic root: 2.8 cm Left atrium: 2.4 cm Ventricular septum: 0.74 cm Posterior wall: 1.02 cm Left ventricle diastole: 4.6 cm DOPPLER MEASUREMENTS: Trace aortic regurgitation. Aortic valve velocity: 83.2 cm/s Mitral E velocity 44.4 cm/s Mitral A velocity 38.3 cm/s Mitral deceleration time: 264 ms Mild tricuspid regurgitation. Estimated right ventricle systolic pressure 49 mmHg assuming a right atrial pressure of 5 mmHg. Very mild pulmonic regurgitation. Pulmonary artery systolic pressure 44 mmHg. MITRAL ANNULAR TISSUE DOPPLER: E prime septal: 7.94 cm/s E prime lateral: 11.3 cm/s DESCRIPTION: Rhythm was sinus. Image quality was adequate. No pericardial effusion. This was a 2D, M-mode, color flow Doppler and pulse wave Doppler examination that included mitral annular tissue Doppler. CONCLUSIONS: 1. Probably normal right ventricle size. Visual impression of moderate reduction in overall right ventricle systolic function. Suggestive of moderate elevation of pulmonary artery systolic pressure (44 mmHg) and moderate elevation of estimated right ventricle systolic pressure (49 mmHg). Mild tricuspid regurgitation and very mild pulmonic regurgitation. 2. Left ventricle systolic function at the lower end of normal. Left ventricular ejection fraction of 55%. No regional wall motion abnormalities of the left ventricle. Normal LV diastolic function. 3. Otherwise normal appearing echocardiogram Doppler findings. DD: Colt Hamm MD [facility] 07/01/18 1600 DVT prophylaxis ordered?: YES ASSESSMENT AND PLAN: Patient is a 28 year old male with a history of bipolar disorder who presented to the [facility] ER with a complaint of two episodes of syncope associated with shortness of breath and chest pain. On admission the patient stated that he believes his symptoms were going on since the beginning of May. He stated that in the end of April he had travelled from [place] by [employer] bus to [place] which is approximately 7 hours. Patient denied any family history of blood clots or bleeding disorders. Patient stated that he had two episodes of syncope. The patient stated he was walking and developed short ness of breath and fell over. He was able to recover and walked again resulting in a second episode of syncope. Patient was found to have a pulmonary embolism. He received catheter directed thrombolysis per vascular surgery PROBLEMS: 1. Submassive Pulmonary Embolism -Patient came in with a pulmonary embolism and signs of right heart strain. Echocardiogram results as stated above. Patient has elevated pulmonary artery pressures. -Patient was seen by Vascular Surgery for catheter directed thrombolysis. Patient has completed tpa treatment. Current plan to keep patient on Heparin drip and begin Coumadin 7.5mg daily. Titrate for INR 2.0-3.0. Will start lovenox 140mg SQ on 07/06/18 (if okay by vascular) and bridge for 48 hours. And continue coumadin outpatient. Case was discussed with Vascular Surgery. He will require Lovenox injection training if his INR is subtherapeutic prior to discharge date. -Patient has had an IVC filter placed and will need this removed at some point as an outpatient. He currently has no contraindications to anticoagulation and has no sign of DVTs -As discussed with Vascular surgery, given the severity of the patients PE, he would be a more appropriate candidate for Coumadin for at least three months. At that point a NOAC may be considered. The patient will likely need life long anticoagulation if he has a coaulopathy -Patient has multiple risk factors for PE including, obesity, smoking, and history of long travel. -07/04/18 occult stool negative 2. Hypercoagulable state/Coagulopathy -Patient has CT imaging demonstrated a likely pulmonary infarct and will need re-imaging in 4-6 weeks as recommended by Pulmonary/ICU Medicine. -Regarding patients PE, he has not had a DVT. He currently has an IVC filter in place. He does have a history of a 7 [address] bus ride from [facility] to [facility]. He likely has had multiple PE's for sometime before developing his current one. His hypercoagulable workup is pending. He will need to follow up outpatient -Patient has been counseled on smoking cessation and healthy diet/weight loss 3. Bipolar Depression -Currently stable. Will continue trazodone. -Patient receives Invega Injections outpatient last dose on June 07, Psych consult regarding medication reinitiation 4. Nicotine Dependence -Patient has received smoking cessation counseling. Will continue nicotine patch 5. Obstructive Sleep Apnea -Patient is morbidly obese and likely has JOHN or at least obesity hypoventilation. He has had elevated pulmonary artery pressures on his Echocardiogram -Patient will benefit from outpatient sleep study to assess for JOHN. He will benefit from CPAP if diagnosis of JOHN is established DISPOSITION: Patient transferred to Med/Surg VS, I&O, 24H, [facility] Vital Signs/I&O Vital Signs Date Time Temp Pulse Resp B/P (MAP) Pulse Ox O2 Delivery O2 Flow Rate FiO2 07/05/18 12:00 97.6 65 18 134/75 (94) 99 07/02/18 07:00 1.0 06/30/18 21:06 Nasal Cannula I&O- Last 24 Hours up to 6 AM 07/05/18 05:59 Intake Total 1982 ml Output Total 2400 ml Balance -418 ml Laboratory Data 24H LABS Laboratory Tests 2 07/04/18 16:56: Activated Partial Thromboplast Time 149.7*H 07/05/18 01:00: Activated Partial Thromboplast Time 62.8H 07/05/18 03:50: Nucleated Red Blood Cells % (auto) 0.0, Prothrombin Time 14.6H, Prothromb Time International Ratio 1.12, Anion Gap 3L, Glomerular Filtration Rate > 60.0, Blood Urea Nitrogen 9, Creatinine 0.88, Sodium Level 138, Potassium Level 4.0, Chloride Level 107, Carbon Dioxide Level 28, Calcium Level 8.3L 07/05/18 08:57: Activated Partial Thromboplast Time 136.3*H CBC/BMP Laboratory Tests 07/05/18 03:50 Red Blood Count 3.50 L, Mean Corpuscular Volume 90.0, Mean Corpuscular Hemoglobin 29.7, Mean Corpuscular Hemoglobin Concent 33.0, Red Cell Distribution Width 13.2, Calcium Level 8.3 L Microbiology Microbiology 07/04/18 Stool Occult Blood (EMILIE) - Final, Complete MIRACLE ALBERT MD July 05, 2018 13:44
[2018-07-05] MEDS: WARFARIN SOD 7.5 MG TAB PO SCH (17:16)
[2018-07-05 17:53] LABS: INR 1.05; PROTHROMBIN TIME 13.8 SECONDS (12.1-14.4)
[2018-07-06] VITALS: BP 138/76
[2018-07-06 01:12] LABS: INR 1.1; PROTHROMBIN TIME 14.3 SECONDS (12.1-14.4)
[2018-07-06 01:14] LABS: PARTIAL THROMBOPLASTIN TIME 115.4 SECONDS (25.4-37.6)
[2018-07-06 04:00] VITALS: BP 137/79
[2018-07-06] MEDS ORDERED: SODIUM CHLORIDE 0.9% INJ 10 ML SYR IV PRN (06:30)
[2018-07-06] MEDS: SODIUM CHLORIDE 0.9% INJ 10 ML SYR IV SCH ×2 (06:53→17:15)
[2018-07-06 07:27] LABS: HEMATOCRIT 31.4 % (42.0-52.0); HEMOGLOBIN 10.3 g/dl (13.5-17.5); MEAN CORPUSCULAR HEMOGLOBIN 30.4 pg (27.0-33.0); MEAN CORPUSCULAR HGB CONC 32.8 g/dl (32.0-36.5); MEAN CORPUSCULAR VOLUME 92.6 fl (80.0-96.0); PLATELET COUNT, AUTOMATED 178 10^3/uL (150-450); RED BLOOD COUNT 3.39 10^6/uL (4.30-6.10); WHITE BLOOD COUNT 7.3 10^3/uL (4.0-10.0)
[2018-07-06 07:53] LABS: BLOOD UREA NITROGEN 9 MG/DL (7-18); CALCIUM LEVEL 8.5 MG/DL (8.5-10.1); CARBON DIOXIDE LEVEL 29 MEQ/L (21-32); CHLORIDE LEVEL 106 MEQ/L (98-107); CREATININE FOR GFR 0.94 MG/DL (0.70-1.30); GLOMERULAR FILTRATION RATE > 60.0 (>60); GLUCOSE, FASTING 96 MG/DL (70-100); POTASSIUM SERUM 4.4 MEQ/L (3.5-5.1); SODIUM LEVEL 139 MEQ/L (136-145)
[2018-07-06 08:06] LABS: INR 1.2; PROTHROMBIN TIME 15.4 SECONDS (12.1-14.4)
[2018-07-06] MEDS: DOCUSATE SODIUM 100 MG CAP PO SCH ×2 (08:19→20:04)
[2018-07-06] MEDS: NICOTINE 14 MG/24 HR TRANSDERMAL TD SCH (08:20)
--- NOTE | 2018-07-06 08:26 | IPNPDOC ---
Date Seen The patient was seen on 07/06/18. Progress Note HPI: 28 year old M presented to ER 06/30/18 after two episodes of syncope, associated with SOB and chest pain. Apparently patient recently traveled from [place] to the [facility] by [employer], which was about 7 hours-long trip. Pt has no personal or family hx of blood clot or bleeding disorder. In the ER, pt was hypoxic, and required 4L of O2 by NC to maintain O2 sat 92- 95%. He had mild tachycardia, HR in low 100. BP stable. Pro-BNP 415. Troponin noted to be 0.58 with recheck 0.44. CTA showed saddle PE on right main PA. The patient was noted to have blood pressure is 99-109 systolic despite IV fluids at 100 cc per hour. Vascular surgery was consulted for any further recommendations. The pt is S/P Pulmonary thrombolysis 07/01/18, Thrombolytic d/c 07/04/18. Also s/p IVC Filter placement 07/01/18. BLE US neg for DVT 07/01/18. The pt states he is feeling better. Denies shortness of breath or chest pain. States he has been out of bed in his room. The patient has been weaned off supplemental oxygen, sats are 98-100%. Pt denies any bleeding. Denies any prior history of bleeding, hematuria, GI bleeding, epistaxis. Denies prior history of head trauma,stroke. The patient states he has never been on anticoagulants. Stool for occult blood x 1 neg. Denies any fevers, chills, weakness, fatigue, Headache, Chest Pain, Shortness of breath, cough, palpitations, abdominal pain, N/V/D or changes in bowel or bladder habits. PMHx: Bipolar disorder M Obesity. BMI 47.2. PSHX: Denies PE: GEN: 28 yo M, appears stated age. Currently comfortable resting in bed. Alert and oriented x 3. HEENT: Normocephalic, atraumatic. Sclera are nonicteric. Conjunctiva without injection. Nose midline. No facial asymmetry. Moist mucous membranes. CHEST: Regular rate and rhythm, +S1, +S2 LUNGS: Clear to auscultation bilaterally. Few wheezes left base, no rales, or rhonchi appreciated. Breathing is currently comfortable. No accessory muscle use. ABD: Round, soft, non-tender, non-distended. +Bowel sounds throughout. No rebound or guarding. EXT: Pulses 2+ bilaterally dorsalis pedis and radial. No lower extremity edema appreciated. SKIN: [place], dry, warm. Capillary refill <2sec. No rashes. NEURO: Alert and oriented x 3. Cranial nerves III-XII are intact. No focal deficits appreciated. CTA chest 1. This study is highly positive for pulmonary embolus with a large saddle embolus in the right main pulmonary artery. 2. The right pulmonary embolus fills the right inferior pulmonary artery and branches to the right lower lobe. There is also embolus to the right upper lobe pulmonary artery. 3. Large pulmonary embolus within the left inferior pulmonary artery to the infrahilar branches.Findings were discussed with LARY LOCKE at 06/30/2018 6:40 PM EDT. Electronically signed by: Hugh Padilla On 06/30/2018 19:01:34 PM BLE US There is no ultrasonographic evidence of deep venous thrombosis involving any of the visualized deep venous structures of the bilateral thighs, as described above. Electronically Signed by Fory Mcgarry DO 07/01/2018 04:40 P TTE 1. Probably normal right ventricle size. Visual impression of moderate reduction in overall right ventricle systolic function. Suggestive of moderate elevation of pulmonary artery systolic pressure (44 mmHg) and moderate elevation of estimated right ventricle systolic pressure (49 mmHg). Mild tricuspid regurgitation and very mild pulmonic regurgitation. 2. Left ventricle systolic function at the lower end of normal. Left ventricular ejection fraction of 55%. No regional wall motion abnormalities of the left ventricle. Normal LV diastolic function. 3. Otherwise normal appearing echocardiogram Doppler findings. DD: Colt Hamm MD [facility] 07/01/18 1600 A&P: 28 year old M presented to ER 06/30/18 after two episodes of syncope, associated with SOB and chest pain. Apparently patient recently traveled from [place] to the [facility] by [employer], which was about 7 hours-long trip. Pt has no personal or family hx of blood clot or bleeding disorder. In the ER, pt was hypoxic, and required 4L of O2 by NC to maintain O2 sat 92- 95%. He had mild tachycardia, HR in low 100. BP stable. Pro-BNP 415. Troponin noted to be 0.58 with recheck 0.44. CTA showed saddle PE on right main PA. Currently the patient states he is still feeling short of breath, palpitations yesterday. He reports no episodes of dizziness or lightheadedness currently. The patient was noted to have blood pressure is 99-109 systolic despite IV fluids at 100 cc per hour. Vascular surgery was consulted for any further recommendations, possibly consider thrombolysis. 1. Pulmonary embolism. S/P thrombolysis, thrombolytic d/c this AM 6:30. S/P IVC filter. Possibly provoked by recent bus trip and morbid obesity. The pt states he is feeling better, denies CP/SOB. Off O2. VSS. TTE as above. FOB x 2 neg. Hgb 10.4, Plt 178. Recommendations as per Dr Barr, Would recommend avoid NOAC. Can d/c heparin gtt today. Resume Lovenox 140 mg subcutaneous every 12hrs. Coumadin anticoagulation. Continue Lovenox bridging until INR therapeutic 2.0-3.0. Can be d/c from vascular standpoint, FU in office 1 week. Our office can follow INR if needed. 2. Bipolar disorder. Management as per primary team. 3. morbid obesity. Complicates care. A-FIB/CHADSVASC A-FIB History Current/History of A-Fib/PAF?: No VS, I&O, 24H, Fishbone Vital Signs/I&O Vital Signs Date Time Temp Pulse Resp B/P (MAP) Pulse Ox O2 Delivery O2 Flow Rate FiO2 07/06/18 04:00 97.7 66 18 137/79 (98) 100 07/02/18 07:00 1.0 06/30/18 21:06 Nasal Cannula I&O- Last 24 Hours up to 6 AM 07/06/18 06:00 Intake Total 1924 ml Output Total 4000 ml Balance -2076 ml Laboratory Data 24H LABS Laboratory Tests 2 07/05/18 08:57: Activated Partial Thromboplast Time 136.3*H 07/05/18 17:16: Activated Partial Thromboplast Time 53.0H, Prothrombin Time 13.8, Prothromb Time International Ratio 1.05 07/06/18 00:50: Activated Partial Thromboplast Time 115.4H, Prothrombin Time 14.3, Prothromb Time International Ratio 1.10 07/06/18 07:02: Nucleated Red Blood Cells % (auto) 0.3H, Anion Gap 4L, Glomerular Filtration Rate > 60.0, Blood Urea Nitrogen 9, Creatinine 0.94, Sodium Level 139, Potassium Level 4.4, Chloride Level 106, Carbon Dioxide Level 29, Calcium Level 8.5 07/06/18 07:40: Prothrombin Time 15.4H, Prothromb Time International Ratio 1.20 CBC/BMP Laboratory Tests 07/06/18 07:02 Red Blood Count 3.39 L, Mean Corpuscular Volume 92.6, Mean Corpuscular Hemoglobin 30.4, Mean Corpuscular Hemoglobin Concent 32.8, Red Cell Distribution Width 13.4, Calcium Level 8.5 Microbiology Microbiology 07/05/18 Stool Occult Blood (EMILIE) - Final, Complete 07/04/18 Stool Occult Blood (EMILIE) - Final, Complete Annie Robert July 06, 2018 08:26
[2018-07-06 09:00] LABS: PARTIAL THROMBOPLASTIN TIME 88.5 SECONDS (25.4-37.6)
[2018-07-06 09:02] LABS: INR 1.14; PROTHROMBIN TIME 14.8 SECONDS (12.1-14.4)
--- NOTE | 2018-07-06 12:07 | IPNPDOC ---
Date Seen The patient was seen on 07/06/18. Progress Note SUBJECTIVE: No overt overnight issue. No bleeding and no shortness of breath. No bleeding overnight. No issue on the med-surg floor. Pe vascular heparin drip can be d/shannan today. Lovenox sc started today. Coumadin to continue. Psych medication Invega assisted by Psychiatry. Patient does state that he is planning on moving back to [place], [place] in a month or two month. Explained that this would complicate care as he will have a lot to follow-up on as an outpatient. Plan will be to set up follow follow ups in [place] as he had no definite date of his move as of yet. OBJECTIVE PHYSICAL EXAMINATION: VITAL SIGNS: Please see below. GENERAL: Awake, alert, and oriented. He is in no acute distress. He is lying in bed comfortably HEENT: Atruamatic, normocephalic. Eyes are nonicteric. Trachea is midline. Mucous membranes are pink and moist. Eyes are nonicteric. Neck is hernandez CARDIOVASCULAR: Normal S1, S2. Regular rate and rhythm. Slightly distant heart sounds. No clicks, rubs, or murmurs RESPIRATORY: Clear vesicular breath sounds bilaterally. Good respiratory effort. No wheezes, rhonci, or rales ABDOMINAL: Morbidly obese. Soft, nondistended. Nontender to palpation of all 4 quadrants. Positive bowel sounds throughout EXTREMITIES: No edema. PICC line in place without bleeding or erythema. Pulses are full and equal in bilateral upper and lower extremities NEUROLOGICAL: No focal neurological deficits PSYCHOLOGICAL: Flat affect. Normal mood LABORATORY DATA, IMAGING STUDIES, MICROBIOLOGY: Please see below. Echocardiogram: DATE OF PROCEDURE: 06/30/2018 REFERRING PHYSICIAN: Abdulkadir Meek MD INDICATION: Syncope. HEIGHT: 67 inches WEIGHT: 145 kg 2D MEASUREMENTS: LVOT: 2.2 cm Aortic root: 2.8 cm Left atrium: 2.4 cm Ventricular septum: 0.74 cm Posterior wall: 1.02 cm Left ventricle diastole: 4.6 cm DOPPLER MEASUREMENTS: Trace aortic regurgitation. Aortic valve velocity: 83.2 cm/s Mitral E velocity 44.4 cm/s Mitral A velocity 38.3 cm/s Mitral deceleration time: 264 ms Mild tricuspid regurgitation. Estimated right ventricle systolic pressure 49 mmHg assuming a right atrial pressure of 5 mmHg. Very mild pulmonic regurgitation. Pulmonary artery systolic pressure 44 mmHg. MITRAL ANNULAR TISSUE DOPPLER: E prime septal: 7.94 cm/s E prime lateral: 11.3 cm/s DESCRIPTION: Rhythm was sinus. Image quality was adequate. No pericardial effusion. This was a 2D, M-mode, color flow Doppler and pulse wave Doppler examination that included mitral annular tissue Doppler. CONCLUSIONS: 1. Probably normal right ventricle size. Visual impression of moderate reduction in overall right ventricle systolic function. Suggestive of moderate elevation of pulmonary artery systolic pressure (44 mmHg) and moderate elevation of estimated right ventricle systolic pressure (49 mmHg). Mild tricuspid regurgitation and very mild pulmonic regurgitation. 2. Left ventricle systolic function at the lower end of normal. Left ventricular ejection fraction of 55%. No regional wall motion abnormalities of the left ventricle. Normal LV diastolic function. 3. Otherwise normal appearing echocardiogram Doppler findings. DD: Colt Hamm MD [facility] 07/01/18 1600 DVT prophylaxis ordered?: YES ASSESSMENT AND PLAN: Patient is a 28 year old male with a history of bipolar disorder who presented to the [facility] ER with a complaint of two episodes of syncope associated with shortness of breath and chest pain. On admission the patient stated that he believes his symptoms were going on since the beginning of May. He stated that in the end of April he had travelled from [place] by [employer] bus to [place] which is approximately 7 hours. Patient denied any family history of blood clots or bleeding disorders. Patient stated that he had two episodes of syncope. The patient stated he was walking and developed shortness of breath and fell over. He was able to recover and walked again resulting in a second episode of syncope. Patient was found to have a pulmonary embolism. He received catheter directed thrombolysis per vascular surgery. S/p heparin drip therapy, converted to lovenox, and coumadin on board. Psych medication Invega assisted by Psychiatry. PROBLEMS: 1. Submassive Pulmonary Embolism -Patient came in with a pulmonary embolism and signs of right heart strain. Echocardiogram results as stated above. Patient has elevated pulmonary artery pressures. -Patient was seen by Vascular Surgery for catheter directed thrombolysis. Patient has completed tpa treatment. S/p Heparin drip and begin Coumadin 7.5mg daily. Titrate for INR 2.0-3.0. Lovenox 140mg SQ on 07/06/18 (after waiting per vascular post tpa treatment and heparin drip) and bridge for 48 hours. And continue coumadin outpatient. Case was discussed with Vascular Surgery. He will require Lovenox injection training if his INR is subtherapeutic prior to discharge date. Patient open to getting injection treating. -Patient has had an IVC filter placed and will need this removed at some point as an outpatient. He currently has no contraindications to anticoagulation and has no sign of DVTs -As discussed with Vascular surgery, given the severity of the patients PE, he would be a more appropriate candidate for Coumadin for at least three months. At that point a NOAC may be considered. The patient will likely need life long anticoagulation if he has a coaulopathy -Patient has multiple risk factors for PE including, obesity, smoking, and history of long travel. -07/04 &09/16 occult stool negative -Need follow up with Vascular within 1 week and Coumadin follow up with Vascular if need 2. Hypercoagulable state/Coagulopathy -Patient has CT imaging demonstrated a likely pulmonary infarct and will need re-imaging in 4-6 weeks as recommended by Pulmonary/ICU Medicine. -Regarding patients PE, he has not had a DVT. He currently has an IVC filter in place. He does have a history of a 7 hour bus ride from [facility] to [facility]. He likely has had multiple PE's for sometime before developing his current one. His hypercoagulable workup is pending. He will need to follow up outpatient -Patient has been counseled on smoking cessation and healthy diet/weight loss 3. Bipolar Depression schizophrenia -Currently stable. Will continue trazodone. -Patient receives Invega Injections outpatient last dose on June 07, Psych consult regarding medication reinitiation 4. Nicotine Dependence -Patient has received smoking cessation counseling. Will continue nicotine patch 5. Obstructive Sleep Apnea -Patient is morbidly obese and likely has JOHN or at least obesity hypoventilation. He has had elevated pulmonary artery pressures on his Echocardiogram -Patient will benefit from outpatient sleep study to assess for JOHN. He will benefit from CPAP if diagnosis of JOHN is established DISPOSITION: Continue to treat and teach. VS, I&O, 24H, Latanya Vital Signs/I&O Vital Signs Date Time Temp Pulse Resp B/P (MAP) Pulse Ox O2 Delivery O2 Flow Rate FiO2 07/06/18 04:00 97.7 66 18 137/79 (98) 100 07/02/18 07:00 1.0 06/30/18 21:06 Nasal Cannula I&O- Last 24 Hours up to 6 AM 07/06/18 06:00 Intake Total 1924 ml Output Total 4000 ml Balance -2076 ml Laboratory Data 24H LABS Laboratory Tests 2 07/05/18 17:16: Prothrombin Time 13.8, Prothromb Time International Ratio 1.05, Activated Partial Thromboplast Time 53.0H 07/06/18 00:50: Prothrombin Time 14.3, Prothromb Time International Ratio 1.10, Activated Partial Thromboplast Time 115.4H 07/06/18 07:02: Nucleated Red Blood Cells % (auto) 0.3H, Anion Gap 4L, Glomerular Filtration Rate > 60.0, Blood Urea Nitrogen 9, Creatinine 0.94, Sodium Level 139, Potassium Level 4.4, Chloride Level 106, Carbon Dioxide Level 29, Calcium Level 8.5 07/06/18 07:40: Prothrombin Time 15.4H, Prothromb Time International Ratio 1.20 07/06/18 08:14: Prothrombin Time 14.8H, Prothromb Time International Ratio 1.14, Activated Partial Thromboplast Time 88.5H CBC/BMP Laboratory Tests 07/06/18 07:02 Red Blood Count 3.39 L, Mean Corpuscular Volume 92.6, Mean Corpuscular Hemoglobin 30.4, Mean Corpuscular Hemoglobin Concent 32.8, Red Cell Distribution Width 13.4, Calcium Level 8.5 Microbiology Microbiology 07/05/18 Stool Occult Blood (EMILIE) - Final, Complete 07/04/18 Stool Occult Blood (EMILIE) - Final, Complete MIRACLE ALBERT MD July 06, 2018 12:07
[2018-07-06] MEDS ORDERED: ENOXAPARIN 150 MG/ML SYR (J1650) SC ONE (12:30)
[2018-07-06 14:00] VITALS: BP 130/76
[2018-07-06 14:11] LABS: ANTI THROMBIN 3 FUNCT ACTIVITY 77 % (75-135); PROTEIN C ANTIGEN 95 % (60-150); PROTEIN S ANTIGEN FREE 69 % (57-157); PROTEIN S ANTIGEN TOTAL 103 % (60-150)
[2018-07-06] MEDS: WARFARIN SOD 7.5 MG TAB PO SCH (17:15)
[2018-07-06 20:00] VITALS: BP 132/69
[2018-07-06] MEDS: ENOXAPARIN 150 MG/ML SYR (J1650) SC SCH (20:04)
[2018-07-07] VITALS: BP 139/74
[2018-07-07 04:00] VITALS: BP_SYST 121; BP_SYST 138; BP_DIAS 67; BP_DIAS 83
[2018-07-07] MEDS: SODIUM CHLORIDE 0.9% INJ 10 ML SYR IV SCH ×2 (05:32→17:13)
[2018-07-07 05:43] LABS: HEMATOCRIT 31.5 % (42.0-52.0); HEMOGLOBIN 10.3 g/dl (13.5-17.5); MEAN CORPUSCULAR HEMOGLOBIN 30.6 pg (27.0-33.0); MEAN CORPUSCULAR HGB CONC 32.7 g/dl (32.0-36.5); MEAN CORPUSCULAR VOLUME 93.5 fl (80.0-96.0); PLATELET COUNT, AUTOMATED 181 10^3/uL (150-450); RED BLOOD COUNT 3.37 10^6/uL (4.30-6.10); WHITE BLOOD COUNT 7.1 10^3/uL (4.0-10.0)
[2018-07-07 05:54] LABS: INR 1.51; PROTHROMBIN TIME 18.4 SECONDS (12.1-14.4)
[2018-07-07 06:02] LABS: BLOOD UREA NITROGEN 9 MG/DL (7-18); CARBON DIOXIDE LEVEL 27 MEQ/L (21-32); CHLORIDE LEVEL 105 MEQ/L (98-107); CREATININE FOR GFR 0.81 MG/DL (0.70-1.30); GLOMERULAR FILTRATION RATE > 60.0 (>60); GLUCOSE, FASTING 89 MG/DL (70-100); POTASSIUM SERUM 3.7 MEQ/L (3.5-5.1); SODIUM LEVEL 140 MEQ/L (136-145)
[2018-07-07] MEDS: DOCUSATE SODIUM 100 MG CAP PO SCH ×2 (08:14→20:57)
[2018-07-07] MEDS: NICOTINE 14 MG/24 HR TRANSDERMAL TD SCH (08:15)
[2018-07-07] MEDS: ENOXAPARIN 150 MG/ML SYR (J1650) SC SCH ×2 (08:15→20:57)
[2018-07-07 10:00] VITALS: BP 126/63
[2018-07-07] MEDS ORDERED: LOVE0.8I3 SC (12:34)
--- NOTE | 2018-07-07 12:46 | IPNPDOC ---
Date Seen The patient was seen on 07/07/18. Progress Note SUBJECTIVE: No overt overnight issue. Spoke to nurse yesterday, patient seem to understand how to inject Lovenox. Today patient to learn to inject Lovenox himself. Lovenox script sent to pharmacy, await to find out if med needs prior authorization. Coumadin to continue. Psych medication Invega, per Dr. Radford, patient has a one week leeway to receive his injection. Recommend contacting the clinic and inform them patient is in the hospital and possible discharge. At the set up another appointment shortly after discharge for patient to receive his injection. Patient while trying todoes state that he is planning on moving back to [place], [place] in a month or two month. Explained that this would complicate care as he will have a lot to follow-up on as an outpatient. Plan will be to set up follow follow ups in [place] as he had no definite date of his move as of yet. OBJECTIVE PHYSICAL EXAMINATION: VITAL SIGNS: Please see below. GENERAL: Awake, alert, and oriented. He is in no acute distress. He is lying in bed comfortably HEENT: Atruamatic, normocephalic. Eyes are nonicteric. Trachea is midline. Mucous membranes are pink and moist. Eyes are nonicteric. Neck is hernandez CARDIOVASCULAR: Normal S1, S2. Regular rate and rhythm. Slightly distant heart sounds. No clicks, rubs, or murmurs RESPIRATORY: Clear vesicular breath sounds bilaterally. Good respiratory effort. No wheezes, rhonci, or rales ABDOMINAL: Morbidly obese. Soft, nondistended. Nontender to palpation of all 4 quadrants. Positive bowel sounds throughout EXTREMITIES: No edema. PICC line in place without bleeding or erythema. Pulses are full and equal in bilateral upper and lower extremities NEUROLOGICAL: No focal neurological deficits PSYCHOLOGICAL: Flat affect. Normal mood LABORATORY DATA, IMAGING STUDIES, MICROBIOLOGY: Please see below. Echocardiogram: DATE OF PROCEDURE: 06/30/2018 REFERRING PHYSICIAN: Abdulkadir Meek MD INDICATION: Syncope. HEIGHT: 67 inches WEIGHT: 145 kg 2D MEASUREMENTS: LVOT: 2.2 cm Aortic root: 2.8 cm Left atrium: 2.4 cm Ventricular septum: 0.74 cm Posterior wall: 1.02 cm Left ventricle diastole: 4.6 cm DOPPLER MEASUREMENTS: Trace aortic regurgitation. Aortic valve velocity: 83.2 cm/s Mitral E velocity 44.4 cm/s Mitral A velocity 38.3 cm/s Mitral deceleration time: 264 ms Mild tricuspid regurgitation. Estimated right ventricle systolic pressure 49 mmHg assuming a right atrial pressure of 5 mmHg. Very mild pulmonic regurgitation. Pulmonary artery systolic pressure 44 mmHg. MITRAL ANNULAR TISSUE DOPPLER: E prime septal: 7.94 cm/s E prime lateral: 11.3 cm/s DESCRIPTION: Rhythm was sinus. Image quality was adequate. No pericardial effusion. This was a 2D, M-mode, color flow Doppler and pulse wave Doppler examination that included mitral annular tissue Doppler. CONCLUSIONS: 1. Probably normal right ventricle size. Visual impression of moderate reduction in overall right ventricle systolic function. Suggestive of moderate elevation of pulmonary artery systolic pressure (44 mmHg) and moderate elevation of estimated right ventricle systolic pressure (49 mmHg). Mild tricuspid regurgitation and very mild pulmonic regurgitation. 2. Left ventricle systolic function at the lower end of normal. Left ventricular ejection fraction of 55%. No regional wall motion abnormalities of the left ventricle. Normal LV diastolic function. 3. Otherwise normal appearing echocardiogram Doppler findings. DD: Colt Hamm MD [facility] 07/01/18 1600 DVT prophylaxis ordered?: YES ASSESSMENT AND PLAN: Patient is a 28 year old male with a history of bipolar disorder who presented to the [facility] ER with a complaint of two episodes of syncope associated with shortness of breath and chest pain. On admission the patient stated that he believes his symptoms were going on since the beginning of May. He stated that in the end of April he had travelled from [place] by [employer] bus to [place] which is approximately 7 hours. Patient denied any family history of blood clots or bleeding disorders. Patient stated that he had two episodes of syncope. The patient stated he was walking and developed shortness of breath and fell over. He was able to recover and walked again resulting in a second episode of syncope. Patient was found to have a pulmonary embolism. He received catheter directed thrombolysis per vascular surgery. S/p heparin drip therapy, converted to lovenox, and coumadin on board. Psych medication Invega assisted by Psychiatry. PROBLEMS: 1. Submassive Pulmonary Embolism -Patient came in with a pulmonary embolism and signs of right heart strain. Echocardiogram results as stated above. Patient has elevated pulmonary artery pr essures. -Patient was seen by Vascular Surgery for catheter directed thrombolysis. Elio julian has completed tpa treatment. S/p Heparin drip and begin Coumadin 7.5mg daily. Titrate for INR 2.0-3.0. Lovenox 140mg SQ on 07/06/18 (after waiting per vascular post tpa treatment and heparin drip) and bridge for 48 hours. And continue coumadin outpatient. Case was discussed with Vascular Surgery. Patient recieved Lovenox injection training. If his INR is subtherapeutic prior to discharge date. Patient is open to using Lovenox injection at home. -Patient has had an IVC filter placed and will need this removed at some point as an outpatient. He currently has no contraindications to anticoagulation and has no sign of DVTs -As discussed with Vascular surgery, given the severity of the patients PE, he would be a more appropriate candidate for Coumadin for at least three months. At that point a NOAC may be considered. The patient will likely need life long anticoagulation if he has a coaulopathy -Patient has multiple risk factors for PE including, obesity, smoking, and history of long travel. -07/04 &09/16 occult stool negative -Need follow up with Vascular within 1 week and Coumadin follow up with Vascular if need 2. Hypercoagulable state/Coagulopathy -Patient has CT imaging demonstrated a likely pulmonary infarct and will need re-imaging in 4-6 weeks as recommended by Pulmonary/ICU Medicine. -Regarding patients PE, he has not had a DVT. He currently has an IVC filter in place. He does have a history of a 7 [address] ride from [facility] to [facility]. He likely has had multiple PE's for sometime before developing his current one. His hypercoagulable workup is pending. He will need to follow up outpatient -Patient has been counseled on smoking cessation and healthy diet/weight loss 3. Bipolar Depression schizophrenia -Currently stable. Will continue trazodone. -Patient receives Invega Injections outpatient last dose on June 07. Per Dr. Radford, patient has a one week leeway to receive his injection. Recommend contacting the clinic and inform them patient is in the hospital and possible discharge. At the set up another appointment shortly after discharge for patient to receive his injection. Please follow up with Injection clinic after discharge for Invega Injection. 4. Nicotine Dependence -Patient has received smoking cessation counseling. Will continue nicotine patch 5. Obstructive Sleep Apnea -Patient is morbidly obese and likely has JOHN or at least obesity hypoventilation. He has had elevated pulmonary artery pressures on his Echocardiogram -Patient will benefit from outpatient sleep study to assess for JOHN. He will benefit from CPAP if diagnosis of JOHN is established DISPOSITION: within 24-48hr. Patient has a PCP and will get assistance from [facility]. VS, I&O, 24H, Fishbone Vital Signs/I&O Vital Signs Date Time Temp Pulse Resp B/P (MAP) Pulse Ox O2 Delivery O2 Flow Rate FiO2 07/07/18 10:00 98.0 64 16 126/63 (84) 98 07/02/18 07:00 1.0 I&O- Last 24 Hours up to 6 AM 07/07/18 06:00 Intake Total 3429 ml Output Total 2575 ml Balance 854 ml Laboratory Data 24H LABS Laboratory Tests 2 07/07/18 05:20: Nucleated Red Blood Cells % (auto) 0.3H 07/07/18 05:30: Prothrombin Time 18.4H, Prothromb Time International Ratio 1.51, Anion Gap 8, Glomerular Filtration Rate > 60.0, Blood Urea Nitrogen 9, Creatinine 0.81, Sodium Level 140, Potassium Level 3.7, Chloride Level 105, Carbon Dioxide Level 27, Calcium Level 8.0L CBC/BMP Laboratory Tests 07/07/18 05:20 Red Blood Count 3.37 L, Mean Corpuscular Volume 93.5, Mean Corpuscular Hemoglobin 30.6, Mean Corpuscular Hemoglobin Concent 32.7, Red Cell Distribution Width 13.7 07/07/18 05:30 Calcium Level 8.0 L Microbiology Microbiology 07/06/18 Stool Occult Blood (EMILIE) - Final, Complete 07/05/18 Stool Occult Blood (EMILIE) - Final, Complete 07/04/18 Stool Occult Blood (EMILIE) - Final, Complete MIRACLE ALBERT MD July 07, 2018 12:46
[2018-07-07 14:00] VITALS: BP 125/70
[2018-07-07] MEDS: WARFARIN SOD 7.5 MG TAB PO SCH (17:13)
[2018-07-07 18:00] VITALS: BP 140/87
[2018-07-07 21:34] VITALS: BP 141/65
[2018-07-08] MEDS: SODIUM CHLORIDE 0.9% INJ 10 ML SYR IV SCH ×2 (05:54→18:00)
[2018-07-08 05:57] VITALS: BP 123/72
[2018-07-08 06:00] LABS: HEMOGLOBIN 10.8 g/dl (13.5-17.5); MEAN CORPUSCULAR HEMOGLOBIN 30.3 pg (27.0-33.0); MEAN CORPUSCULAR HGB CONC 32.7 g/dl (32.0-36.5); MEAN CORPUSCULAR VOLUME 92.4 fl (80.0-96.0); PLATELET COUNT, AUTOMATED 200 10^3/uL (150-450); RED BLOOD COUNT 3.57 10^6/uL (4.30-6.10); WHITE BLOOD COUNT 7.5 10^3/uL (4.0-10.0)
[2018-07-08 06:20] LABS: INR 1.77; PROTHROMBIN TIME 20.9 SECONDS (12.1-14.4)
[2018-07-08 06:41] LABS: BLOOD UREA NITROGEN 8 MG/DL (7-18); CALCIUM LEVEL 8.4 MG/DL (8.5-10.1); CARBON DIOXIDE LEVEL 28 MEQ/L (21-32); CHLORIDE LEVEL 105 MEQ/L (98-107); CREATININE FOR GFR 0.91 MG/DL (0.70-1.30); GLOMERULAR FILTRATION RATE > 60.0 (>60); GLUCOSE, FASTING 90 MG/DL (70-100); POTASSIUM SERUM 4.5 MEQ/L (3.5-5.1); SODIUM LEVEL 139 MEQ/L (136-145)
[2018-07-08] MEDS: NICOTINE 14 MG/24 HR TRANSDERMAL TD SCH (09:15)
[2018-07-08] MEDS: DOCUSATE SODIUM 100 MG CAP PO SCH (09:15)
[2018-07-08] MEDS: ENOXAPARIN 150 MG/ML SYR (J1650) SC SCH (09:15)
[2018-07-08 10:00] VITALS: BP 104/55
[2018-07-08] MEDS ORDERED: COUM7.5T PO (12:52)
[2018-07-08 14:00] VITALS: BP 138/71
--- NOTE | 2018-07-08 14:09 | DS.PDOC ---
Discharge Summary General Date of Admission June 30, 2018 at 19:44 Date of Discharge 07/08/18 Discharge Summary PROCEDURES PERFORMED DURING STAY: PICC lines, TPA use, IVC filter ADMITTING DIAGNOSES: Submassive Pulmonary Embolism Hypercoagulable state/Coagulopathy Bipolar Depression schizophrenia Nicotine Dependence Obstructive Sleep Apnea Obesity Nicotine abuse DISCHARGE DIAGNOSES: Submassive Pulmonary Embolism Hypercoagulable state/Coagulopathy Bipolar Depression schizophrenia Nicotine Dependence Obstructive Sleep Apnea Obesity Nicotine abuse COMPLICATIONS/CHIEF COMPLAINT: Pulmonary Embolism. HISTORY OF PRESENT ILLNESS: [Mr. Marrero is a 28 years old man with no prior medical hx except for Bipolar disorder, for which he doesn't take any medications. Pt presented to ER today after two episodes of syncope, associated with SOB and chest pain. Pt is not sure about exactly when and how his re spiratory symptoms started, but thinks onset may be around early May. At the end of April, he travelled to [place] by [employer], which was about 7 hours-long trip. Pt has no personal or family hx of blood clot or bleeding disorder. In the ER, pt was hypoxic, and required 4L of O2 by NC to maintain O2 sat 92- 95%. He had mild tachycardia, HR in low 100. BP stable. Pro-BNP 415. Troponin normal. CTA showed saddle PE on right main PA.]. HOSPITAL COURSE: [Patient is a 28 year old male with a history of bipolar disorder who presented to the [facility] ER with a complaint of two episodes of syncope associated with shortness of breath and chest pain. On admission the patient stated that he believes his symptoms were going on since the beginning of May. He stated that in the end of April he had travelled from [place] by [employer] bus to [place] which is approximately 7 hours. Patient denied any family history of blood clots or bleeding disorders. Patient stated that he had two episodes of syncope. The patient stated he was walking and developed shortness of breath and fell over. He was able to recover and walked again resulting in a second episode of syncope. Patient was found to have a pulmonary embolism. He received catheter directed thrombolysis per vascular surgery. S/p heparin drip therapy, converted to lovenox, and coumadin on board. He was sen by [employer](Dr. Joshi) and Vascular surgeon ( Dr. Barr). Patient was taught to utilize and self injects Lovenox subcutaneous and showed an demonstrated proficiency to be able to discharge home with Lovenox prescription. Patient to continue Coumadin therapy until INR becomes therapeutic with Lovenox subcutaneous. Advised patient to monitor for any acute bleeding and to avoid bruising. And to contact medical professional if acute bleeding noted. Patient expressed understanding. Patient to have INR monitoring as outpatient. Patient informed us that he is trying to move to [place], [place] sometime within the next month or two. He does not have a definite date of travel for the move. Explained that this would complicate care as he will have a lot to follow-up on as an outpatient. Plan will be to set up follow follow ups in [place] as he had no definite date of his move as of yet. Patient to follow with PCP, Dr. Valverde, and Dr. Barr within 1 week. Patient to have INR drawn on Wednesday. Patient to follow PCP and with the specialists to set up appointment for repeat echo in 3 months to evaluate for right heart pressure, sleep study as needed, repeat CT of the chest in 4-6 weeks, IVC filter reas sessment, hypercoagulable workup, and INR monitoring. Patient also at the time of discharge with the help of TLS to receive his anti- psychiatric IM injection Invega shortly after discharge. Smoking cessation advised. PROBLEMS: 1. Submassive Pulmonary Embolism -Patient came in with a pulmonary embolism and signs of right heart strain. Echocardiogram results as stated above. Patient has elevated pulmonary artery pressures. Would need repeat echocardiogram to see if patient needs sleep study. -Patient was seen by Vascular Surgery for catheter directed thrombolysis. Patient has completed tpa treatment. S/p Heparin drip and begin Coumadin 7.5mg daily. Titrate for INR 2.0-3.0. Lovenox 140mg SQ on 07/06/18 (after waiting per vascular post tpa treatment and heparin drip) and bridge for 48 hours. And continue coumadin outpatient. Case was discussed with Vascular Surgery. Patient recieved Lovenox injection training. His INR is subtherapeutic prior to discharge date. Patient learned to utilize the Lanoxin injection. Patient to continue Lovenox injection and Coumadin therapy and have INR monitored as outpatient. -Patient has had an IVC filter placed and will need this removed at some po int as an outpatient. He currently has no contraindications to anticoagulation and has no sign of DVTs -As discussed with Vascular surgery, given the severity of the patients PE, he would be a more appropriate candidate for Coumadin for at least three months. At that point a NOAC may be considered. The patient will likely need life long anticoagulation if he has a coaulopathy -Patient has multiple risk factors for PE including, obesity, smoking, and history of long travel. -occult stool negative -Need follow up with Vascular within 1 week and Coumadin follow up with Vascular if need 2. Hypercoagulable state/Coagulopathy -Patient has CT imaging demonstrated a likely pulmonary infarct and will need re-imaging in 4-6 weeks as recommended by Pulmonary/ICU Medicine. -Regarding patients PE, he has not had a DVT. He currently has an IVC filter in place. He does have a history of a 7 [address] ride from [facility] to [facility]. He likely has had multiple PE's for sometime before developing his current one. His hypercoagulable workup is pending. He will need to follow up outpatient -Patient has been counseled on smoking cessation and healthy diet/weight loss 3. Bipolar Depression schizophrenia -Currently stable. Will continue trazodone. -Patient receives Invega Injections outpatient last dose on June 07. Per Dr. Radford, patient has a one week leeway to receive his injection. Recommend contacting the clinic and inform them patient is in the hospital and possible discharge. At the set up another appointment shortly after discharge for patient to receive his injection. Please follow up with Injection clinic after discharge for Invega Injection. 4. Nicotine Dependence -Patient has received smoking cessation counseling. Will continue nicotine patch 5. Obstructive Sleep Apnea -Patient is morbidly obese and likely has JOHN or at least obesity hypoventil ation. He has had elevated pulmonary artery pressures on his Echocardiogram -Patient will benefit from outpatient sleep study to assess for JOHN. He will benefit from CPAP if diagnosis of JOHN is established ]. echo:1. Probably normal right ventricle size. Visual impression of moderate reduction in overall right ventricle systolic function. Suggestive of moderate elevation of pulmonary artery systolic pressure (44 mmHg) and moderate elevation of estimated right ventricle systolic pressure (49 mmHg). Mild tricuspid regurgitation and very mild pulmonic regurgitation.2. Left ventricle systolic function at the lower end of normal. Left ventricular ejection fraction of 55%. No regional wall motion abnormalities of the left ventricle. Normal LV diastolic function. 3. Otherwise normal appearing echocardiogram Doppler findings. DISCHARGE MEDICATIONS: Please see below. ALLERGIES: Please see below. PHYSICAL EXAMINATION ON DISCHARGE: VITAL SIGNS: Please see below. GENERAL: Awake, alert, and oriented. He is in no acute distress. He is lying in bed comfortably HEENT: Atruamatic, normocephalic. Eyes are nonicteric. Trachea is midline. Mucous membranes are pink and moist. Eyes are nonicteric. Neck is hernandez CARDIOVASCULAR: Normal S1, S2. Regular rate and rhythm. Slightly distant heart sounds. No clicks, rubs, or murmurs RESPIRATORY: Clear vesicular breath sounds bilaterally. Good respiratory effort. No wheezes, rhonci, or rales ABDOMINAL: Morbidly obese. Soft, nondistended. Nontender to palpation of all 4 quadrants. Positive bowel sounds throughout EXTREMITIES: No edema. Pulses are full and equal in bilateral upper and lower extremities. Brusing from the picc lines. NEUROLOGICAL: No focal neurological deficits PSYCHOLOGICAL: Flat affect. Normal mood LABORATORY DATA: Please see below. IMAGING: [CXR:Cardiomegaly of uncertain etiology. Head CT:There is no intracranial lesion. CT cervical spine:There is no acute fracture or subluxation. CTA chest:1. This study is highly positive for pulmonary embolus with a large saddle embolus in the right main pulmonary artery. 2. The right pulmonary embolus fills the right inferior pulmonary artery and branches to the right lower lobe. There is also embolus to the right upper lobe pulmonary artery. 3. Large pulmonary embolus within the left inferior pulmonary artery to the infrahilar branches.Findings were discussed with LARY LOCKE at 06/30/2018 6:40 PM EDT. LE US:There is no ultrasonographic evidence of deep venous thrombosis involving any of the visualized deep venous structures of the bilateral thighs, as described above. ] PROGNOSIS: [improved] ACTIVITY: [As tolerated]. DIET: [Coumadin diet] DISCHARGE PLAN: [HOME with TLS] DISCHARGE CONDITION: [Stable]. TIME SPENT ON DISCHARGE: Greater than [45] minutes. Vital Signs/I&Os Vital Signs Date Time Temp Pulse Resp B/P (MAP) Pulse Ox O2 Delivery O2 Flow Rate FiO2 07/08/18 10:00 97.1 77 16 104/55 (71) 96 07/02/18 07:00 1.0 I&O- Last 24 Hours up to 6 AM 07/08/18 06:00 Intake Total 1315 ml Output Total 3475 ml Balance -2160 ml Laboratory Data Labs 24H Laboratory Tests 2 07/08/18 05:43: Nucleated Red Blood Cells % (auto) 0.3H, Prothrombin Time 20.9H, Prothromb Time International Ratio 1.77, Anion Gap 6L, Glomerular Filtration Rate > 60.0, Blood Urea Nitrogen 8, Creatinine 0.91, Sodium Level 139, Potassium Level 4.5#, Chloride Level 105, Carbon Dioxide Level 28, Calcium Level 8.4L CBC/BMP Laboratory Tests 07/08/18 05:43 Red Blood Count 3.57 L, Mean Corpuscular Volume 92.4, Mean Corpuscular Hemoglobin 30.3, Mean Corpuscular Hemoglobin Concent 32.7, Red Cell Distribution Width 13.5, Calcium Level 8.4 L Microbiology Microbiology 07/06/18 Stool Occult Blood (EMILIE) - Final, Complete 07/05/18 Stool Occult Blood (EMILIE) - Final, Complete 07/04/18 Stool Occult Blood (EMILIE) - Final, Complete Discharge Medications Scheduled Enoxaparin Sodium (Lovenox) 150 Mg/1 Ml Syringe, 140 MG SC Q12H 7 day supply Loratadine (Loratadine) 10 Mg Tablet, 10 MG PO QHS, (Reported) Paliperidone Palmitate (Invega Sustenna) 234 Mg/1.5 Ml Syringe, 234 MG IM QMONTH, (Reported) Warfarin Sodium (Coumadin) 7.5 Mg Tablet, 7.5 MG PO DAILY@17 Please follow up INR for dose adjustment. Monitor for acute bleeding and notify medical professional immediately. Scheduled PRN Hydroxyzine HCl (Hydroxyzine HCl) 50 Mg Tablet, 50 MG PO BID PRN for ANXIETY, (Reported) Trazodone HCl (Trazodone HCl) 50 Mg Tablet, 50 MG PO QHS PRN for INSOMNIA, (Reported) Allergies Coded Allergies: benzocaine (Verified Adverse Reaction, Mild, nausea and vomiting, 06/30/18) mckenzie flavor (Verified Adverse Reaction, Mild, nausea, 06/30/18) MIRACLE ALBERT MD July 08, 2018 14:09
[2018-07-08] MEDS: WARFARIN SOD 7.5 MG TAB PO SCH (18:43)
--- NOTE | 2018-07-10 14:27 | IPNPDOC ---
Date Seen The patient was seen on 07/10/18. Progress Note 07/10/18 INR is 1.94. Patient to continue Lovenox and Coumadin.Repeat INR already ordered and patient has a PCP appointment. VS, I&O, 24H, Fishbone Vital Signs/I&O Vital Signs Date Time Temp Pulse Resp B/P (MAP) Pulse Ox O2 Delivery O2 Flow Rate FiO2 07/08/18 14:00 97.3 86 16 138/71 (93) 98 Laboratory Data Microbiology Microbiology 07/06/18 Stool Occult Blood (EMILIE) - Final, Complete 07/05/18 Stool Occult Blood (EMILIE) - Final, Complete 07/04/18 Stool Occult Blood (EMILIE) - Final, Complete MIRACLE ALBERT MD July 10, 2018 14:27
== END 2018-07-08 18:50 | disposition home health service (06) | DRG 134 ==
LOC: EDBD 16:32 → M ED 16:32 → M ED INP 19:44 → M ICU 21:19 → M MS4PR 07-05 09:11
PROVIDERS: ADMIT Internal Medicine; ATTEND Internal Medicine
PROC: 06H03DZ Insertion of Intraluminal Device into Inferior Vena Cava, Percutaneous Approach (ICD-10-PCS; principal; 2018-07-01)
PROC: 3E0 Administration, Physiological Systems and Anatomical Regions, Introduction (ICD-10-PCS; 2018-07-01)
DX: I26.92 Saddle embolus of pulmonary artery without acute cor pulmonale (principal); J96.01 Acute respiratory failure with hypoxia; D68.59 Other primary thrombophilia; E66.2 Morbid (severe) obesity with alveolar hypoventilation; Z68.42 Body mass index [BMI] 45.0-49.9, adult; G47.33 Obstructive sleep apnea (adult) (pediatric); F17.210 Nicotine dependence, cigarettes, uncomplicated; F31.9 Bipolar disorder, unspecified; Z88.8 Allergy status to other drugs, medicaments and biological substances; Z79.899 Other long term (current) drug therapy; Z91.19 Patient's noncompliance with other medical treatment and regimen

== ENCOUNTER → 2018-07-10 | Outpatient (REF) | payer OTHER ==
[~2018-07-10] MED LIST changes: +COUM7.5T PO; +HYDR50TA70 PO; +LORA-674 PO; +LOVE0.8I3 SC
[2018-07-10 13:44] LABS: INR 1.94; PROTHROMBIN TIME 22.5 SECONDS (12.1-14.4)
== END ==
LOC: M SHH 13:23
PROVIDERS: ATTEND Internal Medicine
DX: Z79.01 Long term (current) use of anticoagulants (principal)

== ENCOUNTER → 2018-07-12 | Outpatient (REF) | payer OTHER, MEDICAID ==
[2018-07-12 12:27] LABS: INR 2.41; PROTHROMBIN TIME 26.7 SECONDS (12.1-14.4)
== END ==
LOC: M LAB REF 11:57
PROVIDERS: ATTEND Nurse Practitioner Adult Health
DX: I26.09 Other pulmonary embolism with acute cor pulmonale (principal); Z79.01 Long term (current) use of anticoagulants

== ENCOUNTER 2021-04-19 14:11 | Emergency (ER) | payer MEDICAID, OTHER, SELFPAY ==
[~2021-04-19] VITALS: Ht 175.3 cm; Wt 158.0 kg
[~2021-04-19 14:11] MED LIST changes: -COUM7.5T PO; +COUM7.5T6 PO; +TRAZ1TAB10 PO; -TRAZO50TA PO
[2021-04-19] MEDS ORDERED: ONDANSETRON 4 MG ORAL DISINTEGRATING TAB PO ONE (14:30)
[2021-04-19 16:48] VITALS: BP 180/90
== END 2021-04-19 16:52 | disposition home or self-care (01) ==
LOC: M ED 14:11
DX: R11.2 Nausea with vomiting, unspecified (principal); R19.7 Diarrhea, unspecified; G47.33 Obstructive sleep apnea (adult) (pediatric); E66.9 Obesity, unspecified; Z86.718 Personal history of other venous thrombosis and embolism; F31.9 Bipolar disorder, unspecified; Z88.8 Allergy status to other drugs, medicaments and biological substances; Z79.899 Other long term (current) drug therapy; F17.200 Nicotine dependence, unspecified, uncomplicated
CPT/HCPCS: 36415; 80047; 87804; 99283; Q0162

== ENCOUNTER 2021-04-23 14:56 | Inpatient (IN) | payer SELFPAY ==
[~2021-04-23] VITALS: Ht 175.3 cm; Wt 153.9 kg
[2021-04-23] MEDS ORDERED: LEXA1TAB PO (16:15)
[2021-04-23] MEDS ORDERED: OLAN1TAB20 PO (16:15)
[2021-04-23 17:05] LABS: BASO % 0.3 % (0.0-1.0); EOS % 0.2 % (0.0-3.0); HEMOGLOBIN 13.7 g/dl (13.5-17.5); LYMPH # 2.6 10^3/uL (1.5-5.0); LYMPH % 30.1 % (24.0-44.0); MEAN CORPUSCULAR HGB CONC 33.4 g/dl (32.0-36.5); MEAN CORPUSCULAR VOLUME 95.8 fl (80.0-96.0); MONO # 0.5 10^3/uL (0.0-0.8); MONO % 6.3 % (2.0-8.0); NEUTROPHILS # 5.4 10^3/uL (1.5-8.5); NEUTROPHILS % 62.8 % (36.0-66.0); PLATELET COUNT, AUTOMATED 342 10^3/uL (150-450); RED BLOOD COUNT 4.28 10^6/uL (4.30-6.10); WHITE BLOOD COUNT 8.6 10^3/uL (4.0-10.0)
[2021-04-23 17:37] LABS: ACETAMINOPHEN LEVEL < 2.0 UG/ML (10.0-30.0); ALBUMIN 3.6 GM/DL (3.2-5.2); ALT/SGPT 31 U/L (12-78); BILIRUBIN,DIRECT 0.2 MG/DL (0.0-0.2); BILIRUBIN,TOTAL 0.5 MG/DL (0.2-1.0); BLOOD UREA NITROGEN 11 MG/DL (7-18); CARBON DIOXIDE LEVEL 27 MEQ/L (21-32); CHLORIDE LEVEL 103 MEQ/L (98-107); CREATININE FOR GFR 1.02 MG/DL (0.70-1.30); ETHYL ALCOHOL (ETHANOL) < 0.003 % (0.000-0.010); GLOMERULAR FILTRATION RATE > 60.0 (>60); GLUCOSE, FASTING 89 MG/DL (70-100); LIPASE 26 U/L (73-393); POTASSIUM SERUM 4.3 MEQ/L (3.5-5.1); SALICYLATE LEVEL 3.9 MG/DL (5.0-30.0); SODIUM LEVEL 136 MEQ/L (136-145); TOTAL PROTEIN 7.8 GM/DL (6.4-8.2)
[2021-04-23] MEDS ORDERED: ISOVUE-370 76% 100ML VIAL As Ordered ONE (18:04)
[2021-04-23] MEDS ORDERED: ACETAMINOPHEN TAB 650MG DOSE (2X325MG) PO PRN (18:30)
[2021-04-23] MEDS ORDERED: MAALOX 30 ML SUSP *UDC PO PRN (18:30)
[2021-04-23] MEDS ORDERED: MOM 30ML SUSPENSION UDC PO PRN (18:30)
[2021-04-23 18:57] LABS: AMPHETAMINES LEVEL URINE NEGATIVE (NEGATIVE); BARBITURATES URINE NEGATIVE (NEGATIVE); BENZODIAZEPINES URINE NEGATIVE (NEGATIVE); CANNABINOIDS URINE NEGATIVE (NEGATIVE); COCAINE METABOLITE URINE NEGATIVE (NEGATIVE); METHADONE URINE NEGATIVE (NEGATIVE); OPIATES URINE NEGATIVE (NEGATIVE); PHENCYCLIDINE URINE NEGATIVE (NEGATIVE)
[2021-04-23] MEDS ORDERED: HALOPERIDOL 5MG/ML VIAL (J1630 PER 1) IM STA (21:01)
[2021-04-23] MEDS ORDERED: LORazepam 2 MG/ML VIAL IM STA (21:01)
[2021-04-23] MEDS ORDERED: diphenhydrAMINE 50MG/ML VIAL (J1200) IM STA (21:01)
[2021-04-23 21:15] VITALS: BP 189/97
[2021-04-23 21:30] VITALS: BP 158/98
[2021-04-23 22:00] VITALS: BP 172/90
[2021-04-23 22:45] VITALS: BP 150/90
[2021-04-24] MEDS: ESCITALOPRAM OXALATE 10 MG TAB (LEXAPRO) PO SCH (20:51)
[2021-04-24] MEDS: traZODone 50 MG TAB PO PRN (20:51)
[2021-04-24] MEDS: PALIPERIDONE 3 MG ER TAB (INVEGA) PO SCH (20:51)
[2021-04-25 06:13] VITALS: BP 134/73
[2021-04-25] MEDS ORDERED: BENZTROPINE 0.5 MG TAB PO PRN (07:25)
[2021-04-25] MEDS: PALIPERIDONE 3 MG ER TAB (INVEGA) PO SCH ×2 (08:29→21:54)
[2021-04-25] MEDS ORDERED: ONDANSETRON 4 MG TAB PO PRN (13:45)
[2021-04-25] MEDS ORDERED: TRAZ-252 PO (15:37)
[2021-04-25] MEDS ORDERED: HOME MED LIST COMPLETE! XX SCH (15:40)
[2021-04-25 18:27] VITALS: BP 139/86
[2021-04-25] MEDS: traZODone 50 MG TAB PO PRN (21:54)
[2021-04-25] MEDS: ESCITALOPRAM OXALATE 10 MG TAB (LEXAPRO) PO SCH (21:54)
[2021-04-26 07:24] VITALS: BP 121/59
[2021-04-26 08:27] LABS: CHOLESTEROL RISK RATIO 11.904 (<5)
[2021-04-26] MEDS: PALIPERIDONE 3 MG ER TAB (INVEGA) PO SCH ×2 (08:53→20:19)
[2021-04-26 18:57] VITALS: BP 172/78
[2021-04-26] MEDS: ESCITALOPRAM OXALATE 10 MG TAB (LEXAPRO) PO SCH (20:19)
[2021-04-26] MEDS: traZODone 50 MG TAB PO PRN (20:19)
[2021-04-27 06:29] VITALS: BP 148/80
[2021-04-27] MEDS: PALIPERIDONE 3 MG ER TAB (INVEGA) PO SCH ×2 (08:10→20:02)
[2021-04-27 19:10] VITALS: BP 143/83
[2021-04-27] MEDS: traZODone 50 MG TAB PO PRN (20:02)
[2021-04-27] MEDS: ESCITALOPRAM OXALATE 10 MG TAB (LEXAPRO) PO SCH (20:02)
[2021-04-28] MEDS: OLANZapine ORAL DISINTEGRATING TAB 5MG PO PRN (00:24)
[2021-04-28 06:15] VITALS: BP 143/77
[2021-04-28] MEDS ORDERED: PALIPERIDONE PALMITATE 234MG/1.5ML INJ (INVEGA)(FREE PSY INPT ONLY) IM ONE (07:55)
[2021-04-28] MEDS: PALIPERIDONE 3 MG ER TAB (INVEGA) PO SCH ×2 (08:12→20:29)
[2021-04-28 16:48] VITALS: BP 145/90
[2021-04-28] MEDS: traZODone 50 MG TAB PO PRN (20:29)
[2021-04-28] MEDS: ESCITALOPRAM OXALATE 10 MG TAB (LEXAPRO) PO SCH (20:29)
[2021-04-29] MEDS: OLANZapine ORAL DISINTEGRATING TAB 5MG PO PRN (00:03)
[2021-04-29 06:19] VITALS: BP 129/73
[2021-04-29] MEDS: PALIPERIDONE 3 MG ER TAB (INVEGA) PO SCH ×2 (08:03→20:25)
[2021-04-29 16:01] VITALS: BP 143/83
[2021-04-29] MEDS: ESCITALOPRAM OXALATE 10 MG TAB (LEXAPRO) PO SCH (20:25)
[2021-04-29] MEDS: traZODone 50 MG TAB PO PRN (20:25)
[2021-04-30 05:57] VITALS: BP 154/82
[2021-04-30] MEDS: PALIPERIDONE 3 MG ER TAB (INVEGA) PO SCH (08:17)
[2021-04-30 09:43] LABS: INR 1.02; PROTHROMBIN TIME 13.8 SECONDS (12.7-14.5)
[2021-04-30 16:27] VITALS: BP 142/86
[2021-04-30] MEDS: ESCITALOPRAM OXALATE 10 MG TAB (LEXAPRO) PO SCH (20:17)
[2021-04-30] MEDS: traZODone 50 MG TAB PO PRN (20:17)
[2021-05-01] MEDS: OLANZapine ORAL DISINTEGRATING TAB 5MG PO PRN (01:02)
[2021-05-01 06:32] VITALS: BP 122/80
[2021-05-01] MEDS ORDERED: LEXA1TAB PO (08:00)
[2021-05-01] MEDS ORDERED: BENZ0.5T23 PO (08:00)
[2021-05-01] MEDS ORDERED: PALIPERIDONE PALMITATE 156MG/1ML INJ(INVEGA)(FREE PSY INPT ONLY) IM ONE (09:00)
[2021-05-02] MEDS ORDERED: PALIPERIDONE PALMITATE 156MG/1ML INJ(INVEGA)(FREE PSY INPT ONLY) IM ONE (09:00)
== END 2021-05-01 13:57 | disposition home or self-care (01) | DRG 750 ==
LOC: M ED 14:56 → M ED INP 14:57 → M PSY 20:46
PROVIDERS: ADMIT Psychiatry & Neurology Psychiatry; ATTEND Psychiatry & Neurology Psychiatry
DX: F20.0 Paranoid schizophrenia (principal); E66.01 Morbid (severe) obesity due to excess calories; Z59.00 Homelessness unspecified; Z91.14 Patient's other noncompliance with medication regimen; Z91.19 Patient's noncompliance with other medical treatment and regimen; Z88.8 Allergy status to other drugs, medicaments and biological substances; F17.200 Nicotine dependence, unspecified, uncomplicated; G47.33 Obstructive sleep apnea (adult) (pediatric); Z86.711 Personal history of pulmonary embolism

== ENCOUNTER → 2021-05-06 | Outpatient (POV) | payer SELFPAY ==
[~2021-05-06] VITALS: Ht 175.3 cm; Wt 113.6 kg
[~2021-05-06] MED LIST changes: +BENZ0.5T23 PO; +LEXA1TAB PO; +OLAN1TAB20 PO; +TRAZ-252 PO
[2021-05-06 08:10] VITALS: BP 190/89
== END ==
LOC: M IRPOV 07:16
PROVIDERS: ATTEND Radiology Diagnostic Radiology
DX: Z45.89 Encounter for adjustment and management of other implanted devices (principal); Z86.711 Personal history of pulmonary embolism; Z88.4 Allergy status to anesthetic agent; Z91.09 Other allergy status, other than to drugs and biological substances; Z91.14 Patient's other noncompliance with medication regimen; Z95.828 Presence of other vascular implants and grafts

== ENCOUNTER 2022-03-31 20:09 | Emergency (ER) | payer MEDICAID, OTHER ==
[~2022-03-31] VITALS: Ht 170.2 cm; Wt 135.1 kg
[2022-03-31 20:50] VITALS: BP 168/105
== END 2022-04-01 01:22 | disposition left against medical advice (07) ==
LOC: EDBD 20:09 → M ED 20:09
DX: Z53.21 Procedure and treatment not carried out due to patient leaving prior to being seen by health care provider (principal)

== ENCOUNTER → 2022-06-16 | Outpatient (CLI) | payer OTHER ==
[2022-06-17 13:02] LABS: BASO % 0.3 % (0.0-1.0); EOS # 0.1 10^3/uL (0.0-0.5); EOS % 0.6 % (0.0-3.0); HEMATOCRIT 43.1 % (42.0-52.0); HEMOGLOBIN 14.1 g/dl (13.5-17.5); LYMPH % 33.9 % (24.0-44.0); MEAN CORPUSCULAR HEMOGLOBIN 30.9 pg (27.0-33.0); MEAN CORPUSCULAR HGB CONC 32.7 g/dl (32.0-36.5); MEAN CORPUSCULAR VOLUME 94.3 fl (80.0-96.0); MONO # 0.7 10^3/uL (0.0-0.8); MONO % 7.4 % (2.0-8.0); NEUTROPHILS # 5.1 10^3/uL (1.5-8.5); NEUTROPHILS % 57.6 % (36.0-66.0); PLATELET COUNT, AUTOMATED 364 10^3/uL (150-450); RED BLOOD COUNT 4.57 10^6/uL (4.30-6.10); WHITE BLOOD COUNT 8.8 10^3/uL (4.0-10.0)
[2022-06-17 13:16] LABS: ALBUMIN 3.6 G/DL (3.2-5.2); ALKALINE PHOSPHATASE 112 U/L (46-116); ALT/SGPT 23 U/L (7.0-40); AST/SGOT 24 U/L (<34); BILIRUBIN,TOTAL 0.3 MG/DL (0.3-1.2); BLOOD UREA NITROGEN 7 MG/DL (9-23); CALCIUM LEVEL 9.2 MG/DL (8.5-10.1); CARBON DIOXIDE LEVEL 29 MMOL/L (20-31); CHLORIDE LEVEL 102 MMOL/L (98-107); CHOLESTEROL LEVEL 225 MG/DL (<200); CHOLESTEROL RISK RATIO 7.97 (<5); FREE T4 1.15 NG/DL (0.89-1.76); GLOMERULAR FILTRATION RATE > 60.0 (>60); GLUCOSE, FASTING 93 MG/DL (60-100); HDL CHOLESTEROL 28.2 MG/DL (>40); NON-HDL-C 196.8 MG/DL; POTASSIUM SERUM 4.3 MMOL/L (3.5-5.1); SODIUM LEVEL 137 MMOL/L (136-145); THYROID STIMULATING HORMONE 3.236 uIU/ML (0.55-4.78); TOTAL PROTEIN 7.5 G/DL (5.7-8.2); TRIGLYCERIDES LEVEL 94 MG/DL (<150); VITAMIN B12 LEVEL 363 PG/ML (211-911)
[2022-06-17 13:45] LABS: HEMOGLOBIN A1c 5.8 % (4.0-6.0)
== END ==
LOC: M RAD 09:32
PROVIDERS: ATTEND Family Medicine Addiction Medicine
DX: M54.50 Low back pain, unspecified (principal); R73.03 Prediabetes; R20.2 Paresthesia of skin

== ENCOUNTER 2022-06-21 18:52 | Emergency (ER) | payer OTHER ==
[2022-06-21] MEDS ORDERED: LORazepam 2 MG TAB PO ONE (19:40)
[2022-06-21 20:01] LABS: BASO % 0.4 % (0.0-1.0); EOS % 0.4 % (0.0-3.0); HEMATOCRIT 42.2 % (42.0-52.0); HEMOGLOBIN 14.2 g/dl (13.5-17.5); LYMPH # 2.6 10^3/uL (1.5-5.0); LYMPH % 31.8 % (24.0-44.0); MEAN CORPUSCULAR HEMOGLOBIN 31.2 pg (27.0-33.0); MEAN CORPUSCULAR HGB CONC 33.6 g/dl (32.0-36.5); MEAN CORPUSCULAR VOLUME 92.7 fl (80.0-96.0); MONO # 0.7 10^3/uL (0.0-0.8); MONO % 8.1 % (2.0-8.0); NEUTROPHILS # 4.8 10^3/uL (1.5-8.5); NEUTROPHILS % 59.2 % (36.0-66.0); PLATELET COUNT, AUTOMATED 331 10^3/uL (150-450); RED BLOOD COUNT 4.55 10^6/uL (4.30-6.10); WHITE BLOOD COUNT 8.1 10^3/uL (4.0-10.0)
[2022-06-21] MEDS ORDERED: ISOVUE-370 76% 100ML VIAL As Ordered ONE (20:01)
[2022-06-21 20:12] LABS: INR 0.98; PROTHROMBIN TIME 13.2 SECONDS (12.5-14.5)
[2022-06-21 20:27] LABS: CK-MB VALUE MASS 1.7 NG/ML (<3.6); LIPASE 18 U/L (12-53)
[2022-06-21 20:29] LABS: ALBUMIN 3.6 G/DL (3.2-5.2); ALKALINE PHOSPHATASE 113 U/L (46-116); ALT/SGPT 24 U/L (7.0-40); AST/SGOT 23 U/L (<34); BILIRUBIN,DIRECT 0.2 MG/DL (<0.4); BILIRUBIN,TOTAL 0.5 MG/DL (0.3-1.2); BLOOD UREA NITROGEN 12 MG/DL (9-23); CARBON DIOXIDE LEVEL 26 MMOL/L (20-31); CHLORIDE LEVEL 104 MMOL/L (98-107); CREATININE FOR GFR 0.95 MG/DL (0.70-1.30); GLOMERULAR FILTRATION RATE > 60.0 (>60); GLUCOSE, FASTING 78 MG/DL (60-100); POTASSIUM SERUM 4.6 MMOL/L (3.5-5.1); SODIUM LEVEL 135 MMOL/L (136-145); TOTAL PROTEIN 7.3 G/DL (5.7-8.2)
[2022-06-21 20:30] LABS: RSV AMPLIFICATION NEGATIVE (NEGATIVE)
[2022-06-21 20:31] LABS: FREE T4 1.17 NG/DL (0.89-1.76); THYROID STIMULATING HORMONE 1.251 uIU/ML (0.55-4.78)
[2022-06-21 20:32] LABS: CPK CREATINE PHOSPHOKINASE 380 U/L (46-171); MB/CK RELATIVE INDEX 0.44 (< OR =4)
[2022-06-21 21:00] VITALS: BP 163/88
[2022-06-21] MEDS ORDERED: APIXABAN 5 MG TAB (ELIQUIS) PO ONE (21:00)
[2022-06-21] MEDS ORDERED: ELIQ5TAB PO (21:04)
[2022-06-21] MEDS ORDERED: HYDR-3490 PO (21:04)
== END 2022-06-21 21:18 | disposition home or self-care (01) ==
LOC: EDBD 18:52 → M ED 18:52
DX: I26.99 Other pulmonary embolism without acute cor pulmonale (principal); I10 Essential (primary) hypertension; J45.909 Unspecified asthma, uncomplicated; G47.30 Sleep apnea, unspecified; F31.9 Bipolar disorder, unspecified; Z86.711 Personal history of pulmonary embolism; F17.200 Nicotine dependence, unspecified, uncomplicated; F12.10 Cannabis abuse, uncomplicated; Z83.2 Family history of diseases of the blood and blood-forming organs and certain disorders involving the immune mechanism; Z79.899 Other long term (current) drug therapy; Z88.8 Allergy status to other drugs, medicaments and biological substances; Z91.02 Food additives allergy status
CPT/HCPCS: 71045; 71275; 80047; 80048; 80076; 82550; 82553; 83690; 84439; 84443; 85025; 85610; 87631; 93005; 93041; 94760; 99285; Q9967

== ENCOUNTER 2023-01-02 08:56 | Inpatient (IN) | payer MEDICAID, OTHER ==
[~2023-01-02] VITALS: Ht 170.2 cm; Wt 146.1 kg
[~2023-01-02 08:56] MED LIST changes: +BENZ0.5T2 PO; -BENZ0.5T23 PO; +ELIQ5TAB PO; +HYDR-3490 PO; +LORA-1041 PO; -LORA-674 PO
[2023-01-02] MEDS ORDERED: MED REC IN PROGRESS XX SCH (10:35)
[2023-01-02] MEDS ORDERED: HOME MED LIST COMPLETE! XX SCH (10:55)
[2023-01-02 11:18] LABS: HEMATOCRIT 44.7 % (42.0-52.0); HEMOGLOBIN 15.3 g/dl (13.5-17.5); MEAN CORPUSCULAR HEMOGLOBIN 31.5 pg (27.0-33.0); MEAN CORPUSCULAR HGB CONC 34.2 g/dl (32.0-36.5); MEAN CORPUSCULAR VOLUME 92.2 fl (80.0-96.0); PLATELET COUNT, AUTOMATED 373 10^3/uL (150-450); RED BLOOD COUNT 4.85 10^6/uL (4.30-6.10); WHITE BLOOD COUNT 10.5 10^3/uL (4.0-10.0)
[2023-01-02 11:39] LABS: AMPHETAMINES LEVEL URINE NEGATIVE (NEGATIVE); BARBITURATES URINE NEGATIVE (NEGATIVE); BENZODIAZEPINES URINE NEGATIVE (NEGATIVE); COCAINE METABOLITE URINE NEGATIVE (NEGATIVE); METHADONE URINE NEGATIVE (NEGATIVE); OPIATES URINE NEGATIVE (NEGATIVE)
[2023-01-02 11:40] LABS: CANNABINOIDS URINE NEGATIVE (NEGATIVE); PHENCYCLIDINE URINE NEGATIVE (NEGATIVE)
[2023-01-02 11:41] LABS: ETHYL ALCOHOL (ETHANOL) 0.006 % (0.000-0.010)
[2023-01-02 11:43] LABS: ALKALINE PHOSPHATASE 127 U/L (46-116); ALT/SGPT 40 U/L (7.0-40); AST/SGOT 52 U/L (<34); BILIRUBIN,DIRECT 0.2 MG/DL (<0.4); BILIRUBIN,TOTAL 0.5 MG/DL (0.3-1.2); BLOOD UREA NITROGEN 10 MG/DL (9-23); CALCIUM LEVEL 9.7 MG/DL (8.5-10.1); CARBON DIOXIDE LEVEL 27 MMOL/L (20-31); CHLORIDE LEVEL 102 MMOL/L (98-107); CREATININE FOR GFR 1.03 MG/DL (0.70-1.30); GLOMERULAR FILTRATION RATE > 60.0 (>60); GLUCOSE, FASTING 95 MG/DL (60-100); POTASSIUM SERUM 3.8 MMOL/L (3.5-5.1); SALICYLATE LEVEL < 3.0 MG/DL (<30); SODIUM LEVEL 139 MMOL/L (136-145); TOTAL PROTEIN 8.2 G/DL (5.7-8.2)
[2023-01-02 11:45] LABS: THYROID STIMULATING HORMONE 1.794 uIU/ML (0.55-4.78)
[2023-01-02] MEDS ORDERED: HALOPERIDOL 5MG/ML 1ML VIAL IM ONE (12:30)
[2023-01-02] MEDS ORDERED: diphenhydrAMINE 50MG/ML VIAL IM ONE (12:30)
[2023-01-02] MEDS ORDERED: MIDAZOLAM INJ 2MG/2ML VIAL IM ONE (12:30)
[2023-01-02] MEDS ORDERED: OLANZapine 5 MG TAB PO PRN (18:30)
[2023-01-02] MEDS ORDERED: IBUPROFEN 400MG TAB PO PRN (18:30)
[2023-01-02] MEDS ORDERED: diphenhydrAMINE 25MG CAP PO PRN (18:30)
[2023-01-02] MEDS ORDERED: MAALOX 30 ML SUSP *UDC PO PRN (18:30)
[2023-01-02] MEDS ORDERED: MOM 30ML SUSPENSION UDC PO PRN (18:30)
[2023-01-03 06:02] VITALS: BP 138/70; TEMP 97.8; O2SAT 95
[2023-01-03] MEDS: ACETAMINOPHEN TAB 650MG DOSE (2X325MG) PO PRN (08:17)
[2023-01-03] MEDS: OMEPRAZOLE 20MG CAP PO SCH (09:09)
[2023-01-03 09:37] LABS: HEPATITIS C VIRUS ABY INDEX 0.05 INDEX (<0.8)
[2023-01-03 09:38] LABS: HEPATITIS B CORE ANTIBODY IGM NEGATIVE (NEGATIVE)
[2023-01-03] MEDS: SUCRALFATE SUSP 1GM/10ML UD PO SCH ×3 (11:10→20:19)
[2023-01-03] MEDS: NICOTINE 21MG/24HR 1 EA TRANSDERMAL TD SCH (16:33)
[2023-01-03] MEDS ORDERED: INFLUENZA QUADRIVALENT PF VACCINE 0.5ML SYRINGE IM.IMMUN ONE (17:00)
[2023-01-03 18:00] VITALS: BP 141/63; TEMP 98.3
[2023-01-03] MEDS: traZODone 50 MG TAB PO PRN (20:19)
[2023-01-04] MEDS: ACETAMINOPHEN TAB 650MG DOSE (2X325MG) PO PRN (05:21)
[2023-01-04 06:38] VITALS: BP 164/90; TEMP 96.9; O2SAT 97
[2023-01-04] MEDS: SUCRALFATE SUSP 1GM/10ML UD PO SCH ×4 (07:06→20:37)
[2023-01-04] MEDS: OMEPRAZOLE 20MG CAP PO SCH (07:55)
[2023-01-04] MEDS: NICOTINE 21MG/24HR 1 EA TRANSDERMAL TD SCH (07:58)
[2023-01-04] MEDS: PALIPERIDONE 3MG ER TAB (INVEGA) PO SCH ×2 (11:38→20:37)
[2023-01-04 16:29] VITALS: BP 156/94; TEMP 97.7; O2SAT 100
[2023-01-04] MEDS: traZODone 50 MG TAB PO PRN (20:37)
[2023-01-05] MEDS: SUCRALFATE SUSP 1GM/10ML UD PO SCH ×4 (06:30→20:41)
[2023-01-05 06:41] VITALS: BP 174/99; TEMP 97; O2SAT 98
[2023-01-05] MEDS: NICOTINE 21MG/24HR 1 EA TRANSDERMAL TD SCH (07:56)
[2023-01-05] MEDS: PALIPERIDONE 3MG ER TAB (INVEGA) PO SCH ×2 (07:56→20:41)
[2023-01-05] MEDS: OMEPRAZOLE 20MG CAP PO SCH (07:57)
[2023-01-05] MEDS: VENLAFAXINE **XR** 75MG CAPSULE PO SCH (08:28)
[2023-01-05 12:38] VITALS: BP 162/99
[2023-01-05 12:44] VITALS: BP 162/99; TEMP 97; O2SAT 98
[2023-01-05 16:22] VITALS: BP 142/86; TEMP 97; O2SAT 97
[2023-01-05] MEDS: traZODone 50 MG TAB PO PRN (20:41)
[2023-01-06 06:14] VITALS: BP 164/94; TEMP 97.8; O2SAT 96
[2023-01-06] MEDS: SUCRALFATE SUSP 1GM/10ML UD PO SCH (06:37)
[2023-01-06] MEDS: OMEPRAZOLE 20MG CAP PO SCH (07:55)
[2023-01-06] MEDS: VENLAFAXINE **XR** 75MG CAPSULE PO SCH (07:55)
[2023-01-06] MEDS: NICOTINE 21MG/24HR 1 EA TRANSDERMAL TD SCH (07:55)
[2023-01-06] MEDS: PALIPERIDONE 3MG ER TAB (INVEGA) PO SCH (07:56)
[2023-01-06] MEDS ORDERED: PALI1TAB2 PO (10:35)
[2023-01-06] MEDS ORDERED: NICO21PAT TD (10:35)
[2023-01-06] MEDS ORDERED: OMEP-173 PO (10:35)
[2023-01-06] MEDS ORDERED: TRAZ-252 PO (10:35)
[2023-01-06] MEDS ORDERED: VENL75CA47 PO (10:35)
[2023-01-06] MEDS ORDERED: SUCR1ORA PO (10:39)
== END 2023-01-06 11:23 | disposition home or self-care (01) | DRG 750 ==
LOC: M ED 08:56 → EDBD 08:56 → M ED INP 18:28 → M PSY 01-03 01:34
PROVIDERS: ADMIT Student in an Organized Health Care Education/Training Program; ATTEND Student in an Organized Health Care Education/Training Program
DX: F20.0 Paranoid schizophrenia (principal); Z91.119 Patient's noncompliance with dietary regimen due to unspecified reason; Z79.899 Other long term (current) drug therapy; Z88.8 Allergy status to other drugs, medicaments and biological substances; R45.851 Suicidal ideations; G47.33 Obstructive sleep apnea (adult) (pediatric); Z86.711 Personal history of pulmonary embolism; D72.829 Elevated white blood cell count, unspecified; E11.9 Type 2 diabetes mellitus without complications; I10 Essential (primary) hypertension